=== PATIENT | male | born 1945 | race Caucasian/White ===

== ENCOUNTER → 2019-05-21 09:47 | Outpatient (CLI) | payer MEDICARE, OTHER, SELFPAY ==
--- NOTE | 2019-05-21 09:51 | DIET.PN ---
Dietary Progress Note Assessment: 73y M here for instructions on managing pre-DM, wants to go off metformin, PCP okayed 6mo vacation from meds if pt has adequate control via diet/exercise. was taking metformin 500mg once per day HT: 6'1 WT: 175# BMI: 23.1 Labs: labs not in [facility] system, pt reports as: A1c 6, TC around 200 Usual Day: wakes 8am 10 minute workout core and stretching 9am: cheerios, raisin bran, 1 banana, 6 strawberries, blueberries c skim milk walks dog 1/2 mile both am and pm when not raining not very sedentary noon lunch: 1/2 meat cheese (jordanian, with veggies) and half pb&j on raisin bread c water and side of fruit nap afternoon project work, dog walk 6pm: [employer] made meals: taco salad, pizza, turkey stroganoff, turkey meatballs, turkey brats or burgers 10pm in bed. spends 4-5 months on [employer] in [place] during summer Pt's diet quality is overall good, breakfast and dinner likely high in carbs. Pt already removed OJ from breakfast and cut bread serving in half at lunchtime. Pt is active but not cardiovascular, hx of heart procedure. Nutrition Diagnosis: undesirable food choices r/t knowledge deficit of dietary reccs for preDM aeb pt not knowing which foods contain carbs, breakfast and dinner over 45g goal daily, no intentional cardiovascular activity. Interventions: 1. Discussed etiology of insulin resistance, how the A1c is tested and what it means. 2. Discussed ways to become less insulin resistant including increased intentional physical activity and controlled carbohydrate intake (45g/meal). 3. Problem solved patient's usual day and made goals to modify breakfast and lunch to stick to 45g CHO and add intentional moderate intensity walking daily. Monitoring/Evaluations: f/u as desired by pt
== END ==
PROVIDERS: PCP Student in an Organized Health Care Education/Training Program; Referring Provider Student in an Organized Health Care Education/Training Program; Visit Provider Student in an Organized Health Care Education/Training Program
DX: R73.03 Prediabetes (principal); Z71.3 Dietary counseling and surveillance
CPT/HCPCS: 97802

== ENCOUNTER → 2019-11-11 11:17 | Outpatient (CLI) | payer MEDICARE, OTHER, SELFPAY ==
[2019-11-12 19:14] LABS: COVID19 Sendout Not Detected (Not Detect)
== END ==
PROVIDERS: PCP Student in an Organized Health Care Education/Training Program; Visit Provider Physician Assistant
DX: Z11.59 Encounter for screening for other viral diseases (principal)
CPT/HCPCS: 87635

== ENCOUNTER 2019-11-14 12:20 | Day surgery (SDC) | payer MEDICARE, OTHER, SELFPAY ==
--- NOTE | 2019-11-14 | PATH_ITS ---
[facility] [place] Accession Number: [id number] . 01 Material submitted: . colon - ASCENDING COLON POLYP 2MM . 02 Diagnosis: Ascending Colon, Polyp 2 mm, Biopsy: Tubular adenoma. MRV 11/17/2019 1300 Local . 02 Electronically signed: . Zaira Snell MD, Pathologist NPI- [id number] . 01 Gross description: . ASCENDING COLON POLYP 2MM: Received in formalin is 1 fragment(s) of george, soft tissue measuring 0.3 x 0.3 x 0.1 cm submitted entirely in 1 cassette(s) /QBJ 11/15/2019 0745 Local . 02 Pathologist provided ICD-10: D12.2 . 02 CPT . 935687 Performed at: 01 [facility] [address] [id number] MD Quique Moreland MD Phone: [phone] Performed at: 02 [facility] [address] [place], [place] [id number] MD Zaira Snell MD Phone: [phone]
--- NOTE | 2019-11-14 11:34 | PM.HP.1 ---
History of Present Illness History of Present Illness Date Patient Seen: 11/14/19 Time Patient Seen: 13:32 [place] [facility] [place]: 74 year old female comes in today for consideration of a screening colonoscopy. Has had 3 lifetime colonoscopies, all normal. Last colonoscopy in 2009. There have been no lower GI symptoms suggesting disease such as change in bowel habits, bleeding, abdominal pain or anemia. There's been no family history of colon cancer or colon polyps. Overall health issues have been stable, including no major cardiac events for at least 6 weeks. PCP: Dr. Medrano Past medical history: Syncope, 2014, hospitalization Hoarseness, 2010 Valvular heart disease with history of aortic valve replacement Mitral valve prolapse Pacemaker Hyperglycemia Essential/tremor Herpes simplex Degenerative joint disease Lumbar radiculopathy BPH Erectile dysfunction Past surgical history: Aortic valve replacement, bovine, 2011 ascending aortic aneurysm repair, 2011 Left knee arthroscopic medial meniscus repair, 2001 Right knee arthroscopy, 2016 Cataract extraction bilateral, 2018 Vertebroplasty, 2010 Pacemaker 2017 Family history: Noncontributory Social history: to [place]. Retired [employer] x 22 years. Meds Home Medications and Allergies Home Medications Medication Instructions Recorded Confirmed Type No Known Home Medications 11/14/19 11/14/19 History Allergies Allergy/AdvReac Type Severity Reaction Status Date / Time atorvastatin Allergy Severe Anaphylaxis Verified 11/14/19 12:53 Review of Systems Review of Systems ROS: Yes All systems reviewed with the patient and are negative except as otherwise documented Exam Narrative Exam Narrative: GENERAL: Alert and oriented, appearing stated age and in no acute distress. HEENT: Head normocephalic/atraumatic. Pupils equal, round, and reactive to light and accomodation. Extraocular muscles intact. Tympanic membranes clear. Nasal mucosa moist, septum midline. Oral mucosa moist, no lesions. Neck soft and supple, no lymphadenopathy. LUNGS: Clear to ausculation bilaterally, no wheezes, rhonchi or rales. CV: Normal S1 and S2 with regular rate and rhythm, no audible murmurs, rubs or gallops. ABDOMEN: Soft, non-tender, non-distended, no organomegaly. Positive bowel sounds. EXTREMITIES: No clubbing, cyanosis, or edema. NEURO: Cranial nerves II through XII grossly intact, no focal deficits. PSYCH: Alert and oriented x 3. SKIN: No concerning lesions. Assessment & Plan Assessment & Plan narrative: 1. Screening for colon cancer Plan for colonoscopy. The nature and character of the procedure as well as anticipated results were discussed. The possibility of not completing the procedure was also discussed. Possible complications including aspiration pneumonia, bleeding, perforation and reaction to medications either for sedation or preparation and missed lesions were discussed. Questions were answered and proceeding to the colonoscopy was elected. Informed consent signed. I sincerely appreciate the referral allowing me to participate in this patient's care. Please contact me with any questions or concerns.
--- NOTE | 2019-11-14 11:43 | PM.OP.ENDO ---
Operative Date/Time/Diagnoses Date of procedure: 11/14/19 Time of procedure: 13:49 Pre-op diagnosis: 1. Screening for colon cancer Post-op diagnosis: other (Ascending polyp x1, 2 mm, removed with cold biopsy forceps, 2. Diverticulosis, mild) Procedure & Clinicians Study performed: Colonoscopy Same procedure as scheduled: Yes Indications: 1. Screening for colon cancer Surgeon: Laura Medrano Procedure Notes SCOAP/Timeout: 13:49 Procedure in detail: ENDOSCOPIST: Laura Medrano MD Sedation RN: Ivory Gomez RN Sedation start time: 13:49 Sedation end time: 14:09 PROCEDURE: Colonoscopy with cold biopsy INDICATIONS: 1. Screening for colon cancer MEDICATION: Levsin 0.125 mg sublingual, incremental doses of Versed and fentanyl until appropriate level sedation achieved. ASA CLASS: 2 CECAL WITHDRAWAL TIME: 10 minutes COMPLICATIONS: None. EXTENT OF PROCEDURE: Cecum. QUALITY OF PREP: Good with portions of liquid stool. PROCEDURE: Prior to insertion of the colonoscope, a digital rectal examination was accomplished with circumferential palpation of the distal rectal mucosa without significant findings being noted. The high-definition colonoscope was passed into the rectum in the usual fashion and advanced over to the cecum without difficulty. The ileocecal valve, appendiceal stoma, and medial wall all could be inspected and no abnormalities were seen. ASCENDING COLON: As the colonoscope was withdrawn, care was taken to expose and inspect the haustral folds and a 2 mm polyp was seen and removed with cold biopsy forceps. HEPATIC FLEXURE: Normal no polyps, diverticula or other abnormalities. TRANSVERSE COLON: Minor diverticulosis, otherwise, normal, no polyps, or other abnormalities. DESCENDING COLON: Minor diverticulosis, otherwise, normal, no polyps, or other abnormalities. SIGMOID COLON: Minor diverticulosis, otherwise, normal, no polyps, or other abnormalities. RECTUM: Normal. J maneuver was produced. There was no significant perianal disease. The J maneuver was broken. The remainder of the rectum was inspected and there was no external hemorrhoid disease. The scope was withdrawn. IMPRESSION: 1. Ascending polyp x1, 2 mm, removed with cold biopsy forceps 2. Diverticulosis, minor PLAN: 1. Follow-up in clinic status post pathology results. The possibility of a missed lesion including a malignancy has been discussed with the patient previously. Potential alarm symptoms have been discussed and should be reported immediately. Complications: none Post-procedure Recommendations: Will call with biopsy results Follow up: weeks (2) Disposition: PACU
[2019-11-14] MEDS: LACTATED RINGERS 1,000 ML 200 ML IV (13:07)
[2019-11-14 13:10] VITALS: BP 130/75; PULSE 74; RESP 16; TEMP 36.2; O2SAT 96; BMI 22.0
[2019-11-14] MEDS: HYOSCYAMINE 0.125 MG TABLET PO (13:40)
[2019-11-14] MEDS: MIDAZOLAM 5 MG/5 ML VIAL IV ×2 (13:49→13:51)
[2019-11-14] MEDS: fentaNYL 250 MCG/5 ML INJ IV (13:49)
[2019-11-14 14:13] VITALS: BP 99/60; PULSE 74; RESP 17; TEMP 36.1; O2SAT 98
[2019-11-14 14:18] VITALS: BP 96/60; PULSE 71; RESP 12; O2SAT 97
[2019-11-14 14:23] VITALS: BP 108/63; PULSE 83; RESP 20; O2SAT 98
[2019-11-14 14:33] VITALS: BP 105/67; PULSE 72; RESP 18; O2SAT 98
[2019-11-14 14:44] VITALS: BP 105/72; PULSE 67; RESP 12; TEMP 36.5; O2SAT 99
== END 2019-11-14 15:00 | disposition home or self-care (01) ==
PROVIDERS: PCP Student in an Organized Health Care Education/Training Program; Referring Provider Student in an Organized Health Care Education/Training Program; Visit Provider Student in an Organized Health Care Education/Training Program
PROC: 0DJD8ZZ Inspection of Lower Intestinal Tract, Via Natural or Artificial Opening Endoscopic (ICD-10-PCS; CPT 45378; principal; 2019-11-14 13:45)
DX: Z12.11 Encounter for screening for malignant neoplasm of colon (principal); Z95.0 Presence of cardiac pacemaker; I51.9 Heart disease, unspecified; K57.30 Diverticulosis of large intestine without perforation or abscess without bleeding; D12.2 Benign neoplasm of ascending colon
CPT/HCPCS: 45380; J2250; J3010

== ENCOUNTER → 2020-03-26 09:42 | Outpatient (CLI) | payer MEDICARE, OTHER, SELFPAY ==
[2020-03-26 10:29] LABS: Add Manual Diff / Slide Review NO; Basophils Absolute Auto 0 /uL (0-100); Basophils Percent Auto 0.6 % (0-2); Eosinophils Absolute Auto 100 /uL (0-450); Eosinophils Percent Auto 1.8 % (2-4); Hematocrit 40.4 % (41-53); Hemoglobin 13.3 g/dL (13.5-17.5); Lymphocytes Absolute Auto 1800 /uL (1100-4500); Lymphocytes Percent Auto 24.1 % (25-40); Mean Corpuscular Hemoglobin 32.6 PG (26-34); Mean Corpuscular Volume 98.6 fL (80-100); Monocytes Absolute Auto 700 /uL (0-900); Monocytes Percent Auto 9.2 % (3-14); Neutrophils Absolute Auto 4700 /uL (1500-7000); Neutrophils Percent Auto 64.3 % (50-75); Platelet Count 281 X10^3/uL (150-400); Red Blood Cell Count 4.09 X10^6/uL (4.5-5.9); Red Cell Distribution Width 13.1 % (11.6-14.8); White Blood Cell Count 7.3 X10^3/uL (4.5-11.0)
[2020-03-26 10:45] LABS: Alanine Aminotransferase 21 IU/L (<50); Albumin Globulin Ratio 1.3 (1.0-2.8); Alkaline Phosphatase 65 U/L (38-126); Aspartate Aminotransferase 25 IU/L (17-59); BUN Creatinine Ratio 20.5 (6-22); Bilirubin Total 0.5 mg/dL (0.2-1.3); Blood Urea Nitrogen 23 mg/dL (9-20); Carbon Dioxide 28 mmol/L (22-32); Chloride 105 mmol/L (98-107); Cholesterol 195 mg/dL (140-199); Estimated Glomerular Filt Rate > 60.0 mL/min (>60); Glucose 104 mg/dL (80-110); HDL Cholesterol 43 mg/dL (40-60); HEMOLYSIS < 15 (0-50); LDL Cholesterol Calculated 133 mg/dL (<100); Sodium 137 mmol/L (137-145); Triglycerides 97 mg/dL (35-150)
[2020-03-26 10:53] LABS: Hemoglobin A1C% w Est Avg Glu 5.9 % (4.0-6.0)
[2020-03-26 11:15] LABS: Prostate Specific Antigen Scrn 5.07 ng/mL (0.1-4.0)
[2020-03-26 12:25] LABS: Thyroid Stimulating Hormone 2.94 uIU/mL (0.47-4.68)
== END ==
PROVIDERS: PCP Student in an Organized Health Care Education/Training Program; Referring Provider Student in an Organized Health Care Education/Training Program; Visit Provider Student in an Organized Health Care Education/Training Program
DX: R73.01 Impaired fasting glucose (principal); Z79.899 Other long term (current) drug therapy; E78.5 Hyperlipidemia, unspecified; Z13.29 Encounter for screening for other suspected endocrine disorder; N40.1 Benign prostatic hyperplasia with lower urinary tract symptoms; Z12.5 Encounter for screening for malignant neoplasm of prostate
CPT/HCPCS: 36415; 80053; 80061; 83036; 84443; 85025; G0103

== ENCOUNTER → 2020-10-12 15:06 | Outpatient (CLI) | payer MEDICARE, OTHER, SELFPAY ==
--- NOTE | 2020-10-12 15:09 | DI.RAD.S_ITS ---
PROCEDURE: XR KNEE LT 3V INDICATIONS: LT KNEE PAIN TECHNIQUE: 3 views of the knee were acquired. COMPARISON: None. FINDINGS: Bones: No acute fractures or dislocations. No suspicious bony lesions. There is moderate narrowing of the medial femorotibial compartment joint space with small marginal osteophytes. There is also mild to moderate narrowing of the anterior compartment joint space. Superior and inferior patellar enthesophytes are present. Soft tissues: Small joint effusion. No suspicious soft tissue calcifications. IMPRESSION: 1. No acute osseous abnormality. 2. Mild to moderate osteoarthrosis, worst at the medial femorotibial compartment. 3. Small joint effusion. Dictated by: Gianluca Retana M.D. on 10/12/2020 at 16:52 Approved by: Gianluca Retana M.D. on 10/12/2020 at 16:53
== END ==
PROVIDERS: PCP Student in an Organized Health Care Education/Training Program; Referring Provider Student in an Organized Health Care Education/Training Program; Visit Provider Student in an Organized Health Care Education/Training Program
DX: M25.562 Pain in left knee (principal); M17.12 Unilateral primary osteoarthritis, left knee; M25.462 Effusion, left knee
CPT/HCPCS: 73562

== ENCOUNTER 2020-11-19 10:30 | Outpatient (RCR) | payer MEDICARE, OTHER, SELFPAY ==
--- NOTE | 2020-10-19 15:46 | PT.OIE ---
Current Diagnoses Pain in left knee (10/19/20) Visit Care Team Role Provider Type Laura Medrano MD Attending Provider Physician Primary Care Provider Referring Provider Specialty: [facility] Address: [address] [place] [address], [facility], [place], [place], [facility] Email: [email or web address] Physical Therapy Initial Evaluation PT-OP-A Visit Information Start: 10/18/20 12:16 Freq: Status: Active Protocol: Document 10/19/20 10:32 MB (Rec: 10/19/20 10:45 MB [id number]) Out-Patient Physical Therapy Visit Information Visit Information Visit Type Initial Evaluation Visit Note Medicare, for Life Visit Start Time 10:32 Visit Stop Time 11:15 Total Visit Minutes 43 Visit Number 1 Evaluation Information Evaluation Date 10/19/20 PT-OP-B Current Condition Start: 10/18/20 12:16 Freq: Status: Active Protocol: Document 10/19/20 10:32 MB (Rec: 10/19/20 10:45 MB [id number]) Current Condition History of Current Condition Onset Date 2-3 weeks Current Complaints Medial left knee pain History of Current Condition Pt reports onset of pain in left leg 2-3 weeks ago. The pain settled into his left knee. In 1969, he tore his left medial meniscus when skiing and was immoblized and that was helpful. In 2001, he tore it again and underwent arthroscopic surgery. In 2016, he had a right knee injury and surgery. The injuries occurred with squatting movements. Pt reports 4/10 left medial knee pain. He is wearing a sleeve over his left knee. He likes to do exercises everyday to keep his stomach flat and help his back. He is icing his left knee and taking ibuprofen. PMH also includes: AAA, aortic valve replacement, vertebroplasty T1, pacemaker for SSS. Pt states that Dr. Alegre told him that he has to have an x-ray, then PT for 6 weeks, and then he can get a MRI. Pt is open to PT being helpful. Prior Treatments and Tests Left knee x-ray: NAD, mild to moderate OA, worst at medial femorotibial compartment, small joint effusion Treatment Goals Patient/Caregiver Goals To see if PT can resolve his issues so that he does not favor his left knee. He would like to be able to walk and stand without left knee pain. PT-OP-C Subjective Start: 10/18/20 12:16 Freq: Status: Active Protocol: Document 10/19/20 10:32 MB (Rec: 10/19/20 13:50 MB [id number]) OP-PT Subjective Patient Comments Patient Comments See history of current condition. PT-OP-D Balance Start: 10/18/20 12:16 Freq: Status: Active Protocol: Document 10/19/20 10:32 MB (Rec: 10/19/20 14:09 MB [id number]) Balance Tests Other Other Balance Tests Performed Heel raises for PF strengthening: LOB with attempted SLS LLE requiring both hands on wall to keep balance PT-OP-G Mobility & Gait Start: 10/18/20 12:16 Freq: Status: Active Protocol: Document 10/19/20 10:32 MB (Rec: 10/19/20 14:09 MB [id number]) OP Gait Assessment Comments Gait Comments Gait is slow and antalgic, favoring the LLE and pt has decreased step-length and foot clearance and increased weight through lateral foot on the left PT-OP-J Posture/Palpation/Skin Start: 10/18/20 12:16 Freq: Status: Active Protocol: Document 10/19/20 10:32 MB (Rec: 10/19/20 14:09 MB [id number]) Posture Evaluation Comments Posture Comments Gait and standing posture in bare feet today. Standing posture: increased thoracic kyphosis, decreased lordosis and spinal curvature changes from lateral and posterior view, right shoulder is higher than the left with right scapula forward and protracted , right iliac crest is higher than the left, increased WB through right foot and increased Bk angle right foot Palpation: pain to palpation medial left knee joint line close to patella with tension many muscle groups including medial distal hamstring and adductors PT-OP-M Strength Start: 10/18/20 12:16 Freq: Status: Active Protocol: Document 10/19/20 10:32 MB (Rec: 10/19/20 14:09 MB [id number]) Hip Strength Hip Manual Muscle Testing Left Flexion (L2) 5 Normal Abduction 4 Good Adduction 4 Good Right Flexion (L2) 5 Normal Abduction 4 Good Adduction 4 Good Knee Strength Knee Manual Muscle Testing Left Comments Deferred in setting of pain Right Flexion (S2) 5 Normal Extension (L3) 5 Normal Ankle/Foot Strength Ankle and Foot Manual Muscle Testing Left Dorsiflexion (L4) 5 Normal Inversion 4 Good Eversion (S1) 4 Good Comments Heel raises x20 with both hands on wall and reports of calf discomfort, slower than right heel raises Right Dorsiflexion (L4) 5 Normal Inversion 5 Normal Eversion (S1) 5 Normal Comments Heel raises x20 with 1 finger support against wall Toe Strength Toe Manual Muscle Testing Left Great Toe Extension 5 Normal Right Great Toe Extension 5 Normal PT-OP-Q Treatments Start: 10/18/20 12:16 Freq: Status: Active Protocol: Document 10/19/20 10:32 MB (Rec: 10/19/20 13:53 MB [id number]) Therapeutic Exercises Supine Exercises Hamstring stretch Side bilateral Comments Opposite leg straight, AP x20 reps Paramjit stretch Side bilateral Comments Opposite knee bent, pelvic tilt and abdominal drawing in first Other Exercises Reviewed pt's self-reported exercises Comments Pt to stop deep squat quad stretches and forward bends Self-Care/Home Management Treatment Education Other Education Use of frozen peas in pillow case for leg knee icing, use of pillow length-leal between legs at night to help with knee pain PT-OP-T Assessment and Plan Start: 10/18/20 12:16 Freq: Status: Active Protocol: Document 10/19/20 10:32 MB (Rec: 10/19/20 14:09 MB [id number]) Physical Therapy Assessment Rehab Potential Rehabilitation Potential Fair Evaluation Complexity Number of Personal Factors/Comorbidities 1-2 Number of Body Systems Impaired 1-2 Clinical Presentation at Evaluation Evolving Impairments Impairments Activity Tolerance,Balance, Functional Mobility,Gait,Pain, Posture,ROM,Soft Tissue Mobility,Strength Other Impairments Personal factors include advanced age and history of many injuries and left knee surgery. Body systems affected include musculoskeletal and neuromuscular. His clinical presentation is evolving in setting of degenerative changes. Other Concerns Fall Risk Yes Goals 4 Mounter Automatic Goal (LTG) Pt will perform progressive HEP with I including pelvic realignment, flexibility, balance and strengthening exercises to improve pain and functional strength by 12/20/20 . LTG Duration 8 weeks 3 Mounter Automatic Goal (LTG) Pt will perform WNLs on a standardized balance test to decrease fall risk by 12/20/20. LTG Duration 8 weeks 2 Mounter Automatic Goal (LTG) Pt will gait train at least 1400 feet in 6 minutes to improve community ambulation by 12/20/20. LTG Duration 8 weeks 1 Mcc Goal (LTG) Pt will present with an improved LEF score to reflect no more than 25% impairment by 12/20/20. LTG Duration 8 weeks Assessment Summary Assessment Pt is a 75 y/o male presenting with decreased left knee ROM, LLE strength, balance and gait and increased left knee pain after squatting 2-3 weeks ago. He has a history of B knee injuries and surgeries. Pt states that he has a left medial meniscal injury. He is tender to palpation medial joint line near the patella. X -ray revealed some changes. He is hoping that PT will help and states that he knows he has to have it before he has a MRI. He will benefit from PT to improve range, flexibility, strength, gait and balance. Barriers include progressive degenerative disease with possible other underlying anatomical changes to left knee. Physical Therapy Plan Frequency and Duration Frequency of Treatment 2x/Week Duration of Treatment 8 weeks Plan of Care Start Date 10/19/20 Plan of Care End Date 12/20/20 Therapeutic Interventions Therapeutic Interventions Balance Training,Canalithic Repositioning,Gait Training, Home Exercise Program,Joint Mobilizations,Manual Therapy, Neuromuscular Re-education, Patient/Caregiver Education, Sensory Integration,Soft Tissue Mobilization,Taping, Therapeutic Activities, Therapeutic Exercises Modalities Cold Pack/Ice Massage,Electric Stimulation,Hot Packs, Ultrasound Next Visit Focus/Plan Next Note Type Treatment Note Next Visit Plan Pelvic realignment exercises, consider taping and manual work
--- NOTE | 2020-10-19 15:46 | PT.OPPOC ---
Physical, Occupational & Speech Therapy At [facility] Current Diagnoses Pain in left knee (10/19/20) Visit Care Team Role Provider Type Laura Medrano MD Attending Provider Physician Primary Care Provider Referring Provider Specialty: Family Practice Address: [address] [place] [address], [facility] [place], [address] Email: [email or web address] Plan Of Care PT-OP-T Assessment and Plan Start: 10/18/20 12:16 Freq: Status: Active Protocol: Document 10/19/20 10:32 MB (Rec: 10/19/20 14:09 MB [id number]) Physical Therapy Assessment Rehab Potential Rehabilitation Potential Fair Evaluation Complexity Number of Personal Factors/Comorbidities 1-2 Number of Body Systems Impaired 1-2 Clinical Presentation at Evaluation Evolving Impairments Impairments Activity Tolerance,Balance, Functional Mobility,Gait,Pain, Posture,ROM,Soft Tissue Mobility,Strength Other Impairments Personal factors include advanced age and history of many injuries and left knee surgery. Body systems affected include musculoskeletal and neuromuscular. His clinical presentation is evolving in setting of degenerative changes. Other Concerns Fall Risk Yes Goals 4 Dental Appliance Fixer Goal (LTG) Pt will perform progressive HEP with I including pelvic realignment, flexibility, balance and strengthening exercises to improve pain and functional strength by 12/20/20 . LTG Duration 8 weeks 3 Dental Appliance Fixer Goal (LTG) Pt will perform WNLs on a standardized balance test to decrease fall risk by 12/20/20. LTG Duration 8 weeks 2 Dental Appliance Fixer Goal (LTG) Pt will gait train at least 1400 feet in 6 minutes to improve community ambulation by 12/20/20. LTG Duration 8 weeks 1 Dental Appliance Fixer Goal (LTG) Pt will present with an improved LEF score to reflect no more than 25% impairment by 12/20/20. LTG Duration 8 weeks Assessment Summary Assessment Pt is a 75 y/o male presenting with decreased left knee ROM, LLE strength, balance and gait and increased left knee pain after squatting 2-3 weeks ago. He has a history of B knee injuries and surgeries. Pt states that he has a left medial meniscal injury. He is tender to palpation medial joint line near the patella. X -ray revealed some changes. He is hoping that PT will help and states that he knows he has to have it before he has a MRI. He will benefit from PT to improve range, flexibility, strength, gait and balance. Barriers include progressive degenerative disease with possible other underlying anatomical changes to left knee. Physical Therapy Plan Frequency and Duration Frequency of Treatment 2x/Week Duration of Treatment 8 weeks Plan of Care Start Date 10/19/20 Plan of Care End Date 12/20/20 Therapeutic Interventions Therapeutic Interventions Balance Training,Canalithic Repositioning,Gait Training, Home Exercise Program,Joint Mobilizations,Manual Therapy, Neuromuscular Re-education, Patient/Caregiver Education, Sensory Integration,Soft Tissue Mobilization,Taping, Therapeutic Activities, Therapeutic Exercises Modalities Cold Pack/Ice Massage,Electric Stimulation,Hot Packs, Ultrasound Next Visit Focus/Plan Next Note Type Treatment Note Next Visit Plan Pelvic realignment exercises, consider taping and manual work Plan of Care Dates Plan of Care Start Date 10/19/20 Plan of Care End Date 12/20/20 Electronically Signed by: Sandra Hatfield, PT 10/19/20 8402 Please Sign and Return: I have reviewed this Plan of Care and certify that the skilled therapy services above are required to meet the patient?s needs. Physician Signature Date Printed Name and Credentials Clinical Instructor Signature Printed Name and Credentials
--- NOTE | 2020-10-22 11:16 | PT.OTN ---
Current Diagnoses Pain in left knee (10/22/20) Physical Therapy Treatment Note PT-OP-A Visit Information Start: 10/18/20 12:16 Freq: Status: Active Protocol: Document 10/22/20 10:31 MB (Rec: 10/22/20 11:10 MB [id number]) Out-Patient Physical Therapy Visit Information Visit Information Visit Type Treatment Note Visit Start Time 10:31 Visit Stop Time 11:15 Total Visit Minutes 44 Visit Number 2 PT-OP-B Current Condition Start: 10/18/20 12:16 Freq: Status: Active Protocol: Document 10/19/20 10:32 MB (Rec: 10/19/20 10:45 MB [id number]) Current Condition History of Current Condition Onset Date 2-3 weeks Current Complaints Medial left knee pain History of Current Condition Pt reports onset of pain in left leg 2-3 weeks ago. The pain settled into his left knee. In 1969, he tore his left medial meniscus when skiing and was immoblized and that was helpful. In 2001, he tore it again and underwent arthroscopic surgery. In 2015, he had a right knee injury and surgery. The injuries occurred with squatting movements. Pt reports 4/10 left medial knee pain. He is wearing a sleeve over his left knee. He likes to do exercises everyday to keep his stomach flat and help his back. He is icing his left knee and taking ibuprofen. PMH also includes: AAA, aortic valve replacement, vertebroplasty T1, pacemaker for SSS. Pt states that Dr. Alegre told him that he has to have an x-ray, then PT for 6 weeks, and then he can get a MRI. Pt is open to PT being helpful. Prior Treatments and Tests Left knee x-ray: NAD, mild to moderate OA, worst at medial femorotibial compartment, small joint effusion Treatment Goals Patient/Caregiver Goals To see if PT can resolve his issues so that he does not favor his left knee. He would like to be able to walk and stand without left knee pain. PT-OP-C Subjective Start: 10/18/20 12:16 Freq: Status: Active Protocol: Document 10/22/20 10:31 MB (Rec: 10/22/20 11:10 MB [id number]) OP-PT Subjective Patient Comments Patient Comments Pt states that he likes the stretches. His leg felt a little better. PT-OP-D Balance Start: 10/18/20 12:16 Freq: Status: Active Protocol: Document 10/19/20 10:32 MB (Rec: 10/19/20 14:09 MB [id number]) Balance Tests Other Other Balance Tests Performed Heel raises for PF strengthening: LOB with attempted SLS LLE requiring both hands on wall to keep balance PT-OP-G Mobility & Gait Start: 10/18/20 12:16 Freq: Status: Active Protocol: Document 10/19/20 10:32 MB (Rec: 10/19/20 14:09 MB [id number]) OP Gait Assessment Comments Gait Comments Gait is slow and antalgic, favoring the LLE and pt has decreased step-length and foot clearance and increased weight through lateral foot on the left PT-OP-J Posture/Palpation/Skin Start: 10/18/20 12:16 Freq: Status: Active Protocol: Document 10/19/20 10:32 MB (Rec: 10/19/20 14:09 MB [id number]) Posture Evaluation Comments Posture Comments Gait and standing posture in bare feet today. Standing posture: increased thoracic kyphosis, decreased lordosis and spinal curvature changes from lateral and posterior view, right shoulder is higher than the left with right scapula forward and protracted , right iliac crest is higher than the left, increased WB through right foot and increased Bk angle right foot Palpation: pain to palpation medial left knee joint line close to patella with tension many muscle groups including medial distal hamstring and adductors PT-OP-M Strength Start: 10/18/20 12:16 Freq: Status: Active Protocol: Document 10/19/20 10:32 MB (Rec: 10/19/20 14:09 MB [id number]) Hip Strength Hip Manual Muscle Testing Left Flexion (L2) 5 Normal Abduction 4 Good Adduction 4 Good Right Flexion (L2) 5 Normal Abduction 4 Good Adduction 4 Good Knee Strength Knee Manual Muscle Testing Left Comments Deferred in setting of pain Right Flexion (S2) 5 Normal Extension (L3) 5 Normal Ankle/Foot Strength Ankle and Foot Manual Muscle Testing Left Dorsiflexion (L4) 5 Normal Inversion 4 Good Eversion (S1) 4 Good Comments Heel raises x20 with both hands on wall and reports of calf discomfort, slower than right heel raises Right Dorsiflexion (L4) 5 Normal Inversion 5 Normal Eversion (S1) 5 Normal Comments Heel raises x20 with 1 finger support against wall Toe Strength Toe Manual Muscle Testing Left Great Toe Extension 5 Normal Right Great Toe Extension 5 Normal PT-OP-Q Treatments Start: 10/18/20 12:16 Freq: Status: Active Protocol: Document 10/22/20 10:31 MB (Rec: 10/22/20 11:10 MB [id number]) Cardio Equipment Bicycle (Upright) Duration (Minutes) 3 Resistance 8 Seat Position 8 Therapeutic Exercises Supine Exercises Adductor stretch Side bilateral Comments Perform one leg at a time, 20 sec Pelvic realignment exercises Side bilateral Comments 5 reps, 3 sec hold all exercises Paramjit stretch Side left Comments Pelvic tilt and abdominal drawing in, dangling leg Manual Therapy Treatment Other Other Manual Treatments STM left adductors and medial hamstrings, vastus lateralis and rectus femoris PT-OP-T Assessment and Plan Start: 10/18/20 12:16 Freq: Status: Active Protocol: Document 10/22/20 10:31 MB (Rec: 10/22/20 11:10 MB [id number]) Physical Therapy Assessment Rehab Potential Rehabilitation Potential Fair Evaluation Complexity Number of Personal Factors/Comorbidities 1-2 Number of Body Systems Impaired 1-2 Clinical Presentation at Evaluation Evolving Impairments Impairments Activity Tolerance,Balance, Functional Mobility,Gait,Pain, Posture,ROM,Soft Tissue Mobility,Strength Other Impairments Personal factors include advanced age and history of many injuries and left knee surgery. Body systems affected include musculoskeletal and neuromuscular. His clinical presentation is evolving in setting of degenerative changes. Other Concerns Fall Risk Yes Goals 4 Nozzle Worker Goal (LTG) Pt will perform progressive HEP with I including pelvic realignment, flexibility, balance and strengthening exercises to improve pain and functional strength by 12/20/20 . LTG Duration 8 weeks 3 Nozzle Worker Goal (LTG) Pt will perform WNLs on a standardized balance test to decrease fall risk by 12/20/20. LTG Duration 8 weeks 2 Nozzle Worker Goal (LTG) Pt will gait train at least 1400 feet in 6 minutes to improve community ambulation by 12/20/20. LTG Duration 8 weeks 1 Nozzle Worker Goal (LTG) Pt will present with an improved LEF score to reflect no more than 25% impairment by 12/20/20. LTG Duration 8 weeks Assessment Summary Assessment Pt reports discomfort with the upright bike today and so stopped. Pt responds well to manual work to improve right adductor and medial hamstring tension and ed pt on flexibility for this today. Physical Therapy Plan Frequency and Duration Frequency of Treatment 2x/Week Duration of Treatment 8 weeks Plan of Care Start Date 10/19/20 Plan of Care End Date 12/20/20 Therapeutic Interventions Therapeutic Interventions Balance Training,Canalithic Repositioning,Gait Training, Home Exercise Program,Joint Mobilizations,Manual Therapy, Neuromuscular Re-education, Patient/Caregiver Education, Sensory Integration,Soft Tissue Mobilization,Taping, Therapeutic Activities, Therapeutic Exercises Modalities Cold Pack/Ice Massage,Electric Stimulation,Hot Packs, Ultrasound Next Visit Focus/Plan Next Note Type Treatment Note Next Visit Plan Progress flexibility, strengthening and self-care, consider KT
--- NOTE | 2020-10-25 14:34 | PT.OTN ---
Current Diagnoses Pain in left knee (10/25/20) Physical Therapy Treatment Note PT-OP-A Visit Information Start: 10/18/20 12:16 Freq: Status: Active Protocol: Document 10/25/20 13:49 SP (Rec: 10/25/20 15:54 SP [id number]) Out-Patient Physical Therapy Visit Information Visit Information Visit Type Treatment Note Visit Note Medicare, for Life Visit Start Time 13:49 Visit Stop Time 14:34 Total Visit Minutes 45 Visit Number 3 Number of TUFTING MACHINE FIXER Visits 1 Evaluation Information Evaluation Date 10/19/20 PT-OP-B Current Condition Start: 10/18/20 12:16 Freq: Status: Active Protocol: Document 10/19/20 10:32 MB (Rec: 10/19/20 10:45 MB [id number]) Current Condition History of Current Condition Onset Date 2-3 weeks Current Complaints Medial left knee pain History of Current Condition Pt reports onset of pain in left leg 2-3 weeks ago. The pain settled into his left knee. In 1969, he tore his left medial meniscus when skiing and was immoblized and that was helpful. In 2001, he tore it again and underwent arthroscopic surgery. In 2015, he had a right knee injury and surgery. The injuries occurred with squatting movements. Pt reports 4/10 left medial knee pain. He is wearing a sleeve over his left knee. He likes to do exercises everyday to keep his stomach flat and help his back. He is icing his left knee and taking ibuprofen. PMH also includes: AAA, aortic valve replacement, vertebroplasty T1, pacemaker for SSS. Pt states that Dr. Alegre told him that he has to have an x-ray, then PT for 6 weeks, and then he can get a MRI. Pt is open to PT being helpful. Prior Treatments and Tests Left knee x-ray: NAD, mild to moderate OA, worst at medial femorotibial compartment, small joint effusion Treatment Goals Patient/Caregiver Goals To see if PT can resolve his issues so that he does not favor his left knee. He would like to be able to walk and stand without left knee pain. PT-OP-C Subjective Start: 10/18/20 12:16 Freq: Status: Active Protocol: Document 10/25/20 13:49 SP (Rec: 10/25/20 15:54 SP [id number]) OP-PT Subjective Patient Comments Patient Comments Pt stated felt pretty good after last tx so decided [place] with no ill affects. Pt stated the adductor stretch B leg falling out to side caused pain in R posterolateral hip/SI pain so had to stop, is there another way can stretch inner thigh. PT-OP-D Balance Start: 10/18/20 12:16 Freq: Status: Active Protocol: Document 10/19/20 10:32 MB (Rec: 10/19/20 14:09 MB [id number]) Balance Tests Other Other Balance Tests Performed Heel raises for PF strengthening: LOB with attempted SLS LLE requiring both hands on wall to keep balance PT-OP-G Mobility & Gait Start: 10/18/20 12:16 Freq: Status: Active Protocol: Document 10/19/20 10:32 MB (Rec: 10/19/20 14:09 MB [id number]) OP Gait Assessment Comments Gait Comments Gait is slow and antalgic, favoring the LLE and pt has decreased step-length and foot clearance and increased weight through lateral foot on the left PT-OP-J Posture/Palpation/Skin Start: 10/18/20 12:16 Freq: Status: Active Protocol: Document 10/19/20 10:32 MB (Rec: 10/19/20 14:09 MB [id number]) Posture Evaluation Comments Posture Comments Gait and standing posture in bare feet today. Standing posture: increased thoracic kyphosis, decreased lordosis and spinal curvature changes from lateral and posterior view, right shoulder is higher than the left with right scapula forward and protracted , right iliac crest is higher than the left, increased WB through right foot and increased Bk angle right foot Palpation: pain to palpation medial left knee joint line close to patella with tension many muscle groups including medial distal hamstring and adductors PT-OP-M Strength Start: 10/18/20 12:16 Freq: Status: Active Protocol: Document 10/19/20 10:32 MB (Rec: 10/19/20 14:09 MB [id number]) Hip Strength Hip Manual Muscle Testing Left Flexion (L2) 5 Normal Abduction 4 Good Adduction 4 Good Right Flexion (L2) 5 Normal Abduction 4 Good Adduction 4 Good Knee Strength Knee Manual Muscle Testing Left Comments Deferred in setting of pain Right Flexion (S2) 5 Normal Extension (L3) 5 Normal Ankle/Foot Strength Ankle and Foot Manual Muscle Testing Left Dorsiflexion (L4) 5 Normal Inversion 4 Good Eversion (S1) 4 Good Comments Heel raises x20 with both hands on wall and reports of calf discomfort, slower than right heel raises Right Dorsiflexion (L4) 5 Normal Inversion 5 Normal Eversion (S1) 5 Normal Comments Heel raises x20 with 1 finger support against wall Toe Strength Toe Manual Muscle Testing Left Great Toe Extension 5 Normal Right Great Toe Extension 5 Normal PT-OP-Q Treatments Start: 10/18/20 12:16 Freq: Status: Active Protocol: Document 10/25/20 13:49 SP (Rec: 10/25/20 15:54 SP [id number]) Cardio Equipment Bicycle (Upright) Duration (Minutes) 6 Resistance 8 Seat Position 6 Other pain free, feels like some good activity Therapeutic Exercises Supine Exercises Adductor stretch Supine Exercise Name opposite knee bent- no pain in R hip Side bilateral Equipment Used w/ strap added today (better result feedback) Comments Perform one leg at a time, 20 sec Pelvic realignment exercises Supine Exercise Name reviewed HEP Side bilateral Comments 5 reps, 3 sec hold all exercises Hamstring stretch Supine Exercise Name reviewed HEP Side bilateral Comments Opposite leg straight, AP x20 reps Paramjit stretch Supine Exercise Name Opposite Leg bend hold- got better stretch on L Side left Equipment Used 2 reps x20 sec hold Reps/Minutes (best in typical Paramjit testing position- low bed at home- felt good in tx) Comments Pelvic tilt and abdominal drawing in, dangling leg Standing Exercises band walk Standing Exercise Name added to HEP Side bilateral Resistance TB #1 loop Reps/Minutes 10 ft x2 laps Comments cued safe eccentric control, perform at counter TKE Standing Exercise Name added to HEP Side right Resistance TB #3 Equipment Used chair nearby contact as needed for stability at home, anchored in door Reps/Minutes 2x10 Comments good slow pacing control w/ quad fac, painfree PT-OP-T Assessment and Plan Start: 10/18/20 12:16 Freq: Status: Active Protocol: Document 10/25/20 13:49 SP (Rec: 10/25/20 15:54 SP [id number]) Physical Therapy Assessment Goals 4 Senior Care Goal (LTG) Pt will perform progressive HEP with I including pelvic realignment, flexibility, balance and strengthening exercises to improve pain and functional strength by 12/20/20 . LTG Duration 8 weeks 3 Poultry Hanger Goal (LTG) Pt will perform WNLs on a standardized balance test to decrease fall risk by 12/20/20. LTG Duration 8 weeks 2 Poultry Hanger Goal (LTG) Pt will gait train at least 1400 feet in 6 minutes to improve community ambulation by 12/20/20. LTG Duration 8 weeks 1 Senior Care Goal (LTG) Pt will present with an improved LEF score to reflect no more than 25% impairment by 12/20/20. LTG Duration 8 weeks Assessment Summary Assessment Pt responded welll to modification of Paramjit stretch position off end bed due to low bed height at home, adductor streth using strap better stretch responses. Initiated CKC strengthening: TKE, band walk today with good feedback pain free and good focused quad and hip abd facilitation tiring, stable balance, verbalized use of counter/ chair contact if needed. Physical Therapy Plan Frequency and Duration Frequency of Treatment 2x/Week Duration of Treatment 8 weeks Plan of Care Start Date 10/19/20 Plan of Care End Date 12/20/20 Therapeutic Interventions Therapeutic Interventions Balance Training,Canalithic Repositioning,Gait Training, Home Exercise Program,Joint Mobilizations,Manual Therapy, Neuromuscular Re-education, Patient/Caregiver Education, Sensory Integration,Soft Tissue Mobilization,Taping, Therapeutic Activities, Therapeutic Exercises Modalities Cold Pack/Ice Massage,Electric Stimulation,Hot Packs, Ultrasound Next Visit Focus/Plan Next Note Type Treatment Note Next Visit Plan Assess response to flexibility HEP review and initiated CKC strengthening. POC: Progress flexibility, strengthening and self-care, consider KT
--- NOTE | 2020-10-28 13:56 | PT.OTN ---
Current Diagnoses Pain in left knee (10/28/20) Physical Therapy Treatment Note PT-OP-A Visit Information Start: 10/18/20 12:16 Freq: Status: Active Protocol: Document 10/28/20 12:58 MB (Rec: 10/28/20 13:45 MB [id number]) Out-Patient Physical Therapy Visit Information Visit Information Visit Type Treatment Note Visit Note Medicare, for Life Visit Start Time 12:58 Visit Stop Time 13:40 Total Visit Minutes 42 Visit Number 4 PT-OP-B Current Condition Start: 10/18/20 12:16 Freq: Status: Active Protocol: Document 10/19/20 10:32 MB (Rec: 10/19/20 10:45 MB [id number]) Current Condition History of Current Condition Onset Date 2-3 weeks Current Complaints Medial left knee pain History of Current Condition Pt reports onset of pain in left leg 2-3 weeks ago. The pain settled into his left knee. In 1969, he tore his left medial meniscus when skiing and was immoblized and that was helpful. In 2001, he tore it again and underwent arthroscopic surgery. In 2015, he had a right knee injury and surgery. The injuries occurred with squatting movements. Pt reports 4/10 left medial knee pain. He is wearing a sleeve over his left knee. He likes to do exercises everyday to keep his stomach flat and help his back. He is icing his left knee and taking ibuprofen. PMH also includes: AAA, aortic valve replacement, vertebroplasty T1, pacemaker for SSS. Pt states that Dr. Alegre told him that he has to have an x-ray, then PT for 6 weeks, and then he can get a MRI. Pt is open to PT being helpful. Prior Treatments and Tests Left knee x-ray: NAD, mild to moderate OA, worst at medial femorotibial compartment, small joint effusion Treatment Goals Patient/Caregiver Goals To see if PT can resolve his issues so that he does not favor his left knee. He would like to be able to walk and stand without left knee pain. PT-OP-C Subjective Start: 10/18/20 12:16 Freq: Status: Active Protocol: Document 10/28/20 12:58 MB (Rec: 10/28/20 13:45 MB [id number]) OP-PT Subjective Patient Comments Patient Comments Pt states that he felt really good after manual PT work last week and went for a long walk that went well. Earlier in the week, he went off his ibuprofen and his right knee started to bother him. He denies injury. He has a history of B knee injuries and surgeries. PT-OP-D Balance Start: 10/18/20 12:16 Freq: Status: Active Protocol: Document 10/19/20 10:32 MB (Rec: 10/19/20 14:09 MB [id number]) Balance Tests Other Other Balance Tests Performed Heel raises for PF strengthening: LOB with attempted SLS LLE requiring both hands on wall to keep balance PT-OP-G Mobility & Gait Start: 10/18/20 12:16 Freq: Status: Active Protocol: Document 10/19/20 10:32 MB (Rec: 10/19/20 14:09 MB [id number]) OP Gait Assessment Comments Gait Comments Gait is slow and antalgic, favoring the LLE and pt has decreased step-length and foot clearance and increased weight through lateral foot on the left PT-OP-J Posture/Palpation/Skin Start: 10/18/20 12:16 Freq: Status: Active Protocol: Document 10/19/20 10:32 MB (Rec: 10/19/20 14:09 MB [id number]) Posture Evaluation Comments Posture Comments Gait and standing posture in bare feet today. Standing posture: increased thoracic kyphosis, decreased lordosis and spinal curvature changes from lateral and posterior view, right shoulder is higher than the left with right scapula forward and protracted , right iliac crest is higher than the left, increased WB through right foot and increased Bk angle right foot Palpation: pain to palpation medial left knee joint line close to patella with tension many muscle groups including medial distal hamstring and adductors PT-OP-M Strength Start: 10/18/20 12:16 Freq: Status: Active Protocol: Document 10/19/20 10:32 MB (Rec: 10/19/20 14:09 MB [id number]) Hip Strength Hip Manual Muscle Testing Left Flexion (L2) 5 Normal Abduction 4 Good Adduction 4 Good Right Flexion (L2) 5 Normal Abduction 4 Good Adduction 4 Good Knee Strength Knee Manual Muscle Testing Left Comments Deferred in setting of pain Right Flexion (S2) 5 Normal Extension (L3) 5 Normal Ankle/Foot Strength Ankle and Foot Manual Muscle Testing Left Dorsiflexion (L4) 5 Normal Inversion 4 Good Eversion (S1) 4 Good Comments Heel raises x20 with both hands on wall and reports of calf discomfort, slower than right heel raises Right Dorsiflexion (L4) 5 Normal Inversion 5 Normal Eversion (S1) 5 Normal Comments Heel raises x20 with 1 finger support against wall Toe Strength Toe Manual Muscle Testing Left Great Toe Extension 5 Normal Right Great Toe Extension 5 Normal PT-OP-Q Treatments Start: 10/18/20 12:16 Freq: Status: Active Protocol: Document 10/28/20 12:58 MB (Rec: 10/28/20 13:45 MB [id number]) Therapeutic Exercises Sitting Exercises Rolling pin self-massage Side bilateral Comments See saw motion Gait Training Gait Activity Gait with walking stick Comments Walking stick in left hand to advance with right foot with gait to help improve magali to protect left knee gains Manual Therapy Treatment Taping KT Comments KT right knee for support to help improve walking posture to protect left knee improvements: black KT with c strip under patella and B I strips medial and lateral knee Other Other Manual Treatments STM left adductors and medial hamstrings, vastus lateralis and gastrocsoleus. More work on adductors today and pt performing resisted isometric for adductors and active HS for vastus lateralis MWM PT-OP-T Assessment and Plan Start: 10/18/20 12:16 Freq: Status: Active Protocol: Document 10/28/20 12:58 MB (Rec: 10/28/20 13:45 MB [id number]) Physical Therapy Assessment Rehab Potential Rehabilitation Potential Fair Evaluation Complexity Number of Personal Factors/Comorbidities 1-2 Number of Body Systems Impaired 1-2 Clinical Presentation at Evaluation Evolving Impairments Impairments Activity Tolerance,Balance, Functional Mobility,Gait,Pain, Posture,ROM,Soft Tissue Mobility,Strength Other Impairments Personal factors include advanced age and history of many injuries and left knee surgery. Body systems affected include musculoskeletal and neuromuscular. His clinical presentation is evolving in setting of degenerative changes. Other Concerns Fall Risk Yes Goals 4 Supervisor Drapery Hanging Goal (LTG) Pt will perform progressive HEP with I including pelvic realignment, flexibility, balance and strengthening exercises to improve pain and functional strength by 12/20/20 . LTG Duration 8 weeks 3 Supervisor Drapery Hanging Goal (LTG) Pt will perform WNLs on a standardized balance test to decrease fall risk by 12/20/20. LTG Duration 8 weeks 2 Supervisor Drapery Hanging Goal (LTG) Pt will gait train at least 1400 feet in 6 minutes to improve community ambulation by 12/20/20. LTG Duration 8 weeks 1 Supervisor Drapery Hanging Goal (LTG) Pt will present with an improved LEF score to reflect no more than 25% impairment by 12/20/20. LTG Duration 8 weeks Assessment Summary Assessment Pt has new right knee pain and PT encourages him to follow- up with doctor to get assessed and to get right knee added to PT order. Did teach gait with walking stick and tape right knee today in order to protect gains made with left knee d/t severely antalgic gait upon arrival today. KT is better than brace sleeve he was wearing upon arrival d/t not blocking the patella and allowing better knee ROM for gait. His left adductors con't to improve with manual work. Con't per POC. Ed pt to con't icing both knees as needed. Physical Therapy Plan Frequency and Duration Frequency of Treatment 2x/Week Duration of Treatment 8 weeks Plan of Care Start Date 10/19/20 Plan of Care End Date 12/20/20 Therapeutic Interventions Therapeutic Interventions Balance Training,Canalithic Repositioning,Gait Training, Home Exercise Program,Joint Mobilizations,Manual Therapy, Neuromuscular Re-education, Patient/Caregiver Education, Sensory Integration,Soft Tissue Mobilization,Taping, Therapeutic Activities, Therapeutic Exercises Modalities Cold Pack/Ice Massage,Electric Stimulation,Hot Packs, Ultrasound Next Visit Focus/Plan Next Note Type Treatment Note Next Visit Plan Progress flexibility, strengthening, if right knee order received, will add to treatment, consider teaching self KT
--- NOTE | 2020-11-03 15:44 | PT.OTN ---
Current Diagnoses Pain in left knee (11/03/20) Physical Therapy Treatment Note PT-OP-A Visit Information Start: 10/18/20 12:16 Freq: Status: Active Protocol: Document 11/03/20 13:00 MB (Rec: 11/03/20 13:38 MB [id number]) Out-Patient Physical Therapy Visit Information Visit Information Visit Type Progress Note Visit Note Medicare, for Life, before KX modifier Visit Start Time 13:00 Visit Stop Time 13:40 Total Visit Minutes 40 Visit Number 5 PT-OP-B Current Condition Start: 10/18/20 12:16 Freq: Status: Active Protocol: Document 10/19/20 10:32 MB (Rec: 10/19/20 10:45 MB [id number]) Current Condition History of Current Condition Onset Date 2-3 weeks Current Complaints Medial left knee pain History of Current Condition Pt reports onset of pain in left leg 2-3 weeks ago. The pain settled into his left knee. In 1969, he tore his left medial meniscus when skiing and was immoblized and that was helpful. In 2001, he tore it again and underwent arthroscopic surgery. In 2015, he had a right knee injury and surgery. The injuries occurred with squatting movements. Pt reports 4/10 left medial knee pain. He is wearing a sleeve over his left knee. He likes to do exercises everyday to keep his stomach flat and help his back. He is icing his left knee and taking ibuprofen. PMH also includes: AAA, aortic valve replacement, vertebroplasty T1, pacemaker for SSS. Pt states that Dr. Alegre told him that he has to have an x-ray, then PT for 6 weeks, and then he can get a MRI. Pt is open to PT being helpful. Prior Treatments and Tests Left knee x-ray: NAD, mild to moderate OA, worst at medial femorotibial compartment, small joint effusion Treatment Goals Patient/Caregiver Goals To see if PT can resolve his issues so that he does not favor his left knee. He would like to be able to walk and stand without left knee pain. PT-OP-C Subjective Start: 10/18/20 12:16 Freq: Status: Active Protocol: Document 11/03/20 13:00 MB (Rec: 11/03/20 13:38 MB [id number]) OP-PT Subjective Patient Comments Patient Comments Received order for right knee. Pt states that he used the rolling pin on his right leg and the pain went away. He has no real knee pain. He feels tension in his left knee and awareness that something still isn't right. He is concerned about having another onset of intense pain. PT-OP-D Balance Start: 10/18/20 12:16 Freq: Status: Active Protocol: Document 10/19/20 10:32 MB (Rec: 10/19/20 14:09 MB [id number]) Balance Tests Other Other Balance Tests Performed Heel raises for PF strengthening: LOB with attempted SLS LLE requiring both hands on wall to keep balance PT-OP-G Mobility & Gait Start: 10/18/20 12:16 Freq: Status: Active Protocol: Document 10/19/20 10:32 MB (Rec: 10/19/20 14:09 MB [id number]) OP Gait Assessment Comments Gait Comments Gait is slow and antalgic, favoring the LLE and pt has decreased step-length and foot clearance and increased weight through lateral foot on the left PT-OP-J Posture/Palpation/Skin Start: 10/18/20 12:16 Freq: Status: Active Protocol: Document 10/19/20 10:32 MB (Rec: 10/19/20 14:09 MB [id number]) Posture Evaluation Comments Posture Comments Gait and standing posture in bare feet today. Standing posture: increased thoracic kyphosis, decreased lordosis and spinal curvature changes from lateral and posterior view, right shoulder is higher than the left with right scapula forward and protracted , right iliac crest is higher than the left, increased WB through right foot and increased Bk angle right foot Palpation: pain to palpation medial left knee joint line close to patella with tension many muscle groups including medial distal hamstring and adductors PT-OP-M Strength Start: 10/18/20 12:16 Freq: Status: Active Protocol: Document 10/19/20 10:32 MB (Rec: 10/19/20 14:09 MB [id number]) Hip Strength Hip Manual Muscle Testing Left Flexion (L2) 5 Normal Abduction 4 Good Adduction 4 Good Right Flexion (L2) 5 Normal Abduction 4 Good Adduction 4 Good Knee Strength Knee Manual Muscle Testing Left Comments Deferred in setting of pain Right Flexion (S2) 5 Normal Extension (L3) 5 Normal Ankle/Foot Strength Ankle and Foot Manual Muscle Testing Left Dorsiflexion (L4) 5 Normal Inversion 4 Good Eversion (S1) 4 Good Comments Heel raises x20 with both hands on wall and reports of calf discomfort, slower than right heel raises Right Dorsiflexion (L4) 5 Normal Inversion 5 Normal Eversion (S1) 5 Normal Comments Heel raises x20 with 1 finger support against wall Toe Strength Toe Manual Muscle Testing Left Great Toe Extension 5 Normal Right Great Toe Extension 5 Normal PT-OP-Q Treatments Start: 10/18/20 12:16 Freq: Status: Active Protocol: Document 11/03/20 13:00 MB (Rec: 11/03/20 13:38 MB [id number]) Therapeutic Exercises Supine Exercises Core progression Supine Exercise Name Abdominal drawing in, lumbar rotation, HS, mini march, bridge, knee fall ou Side bilateral Comments Level 1 band around knees with bridge Adductor stretch Comments Verbal review today Pelvic realignment exercises Comments Verbal review today Hamstring stretch Side bilateral Comments Opposite leg straight, AP with leg up in the air Paramjit stretch Side bilateral Comments Opposite leg bent, 45 sec hold Sitting Exercises Rolling pin self-massage Comments Pt demonstrates well today Standing Exercises band walk Standing Exercise Name Side stepping and backwards walking Comments Level 1 band around ankles, several reps PT-OP-T Assessment and Plan Start: 10/18/20 12:16 Freq: Status: Active Protocol: Document 11/03/20 13:00 MB (Rec: 11/03/20 13:38 MB [id number]) Physical Therapy Assessment Rehab Potential Rehabilitation Potential Fair Evaluation Complexity Number of Personal Factors/Comorbidities 1-2 Number of Body Systems Impaired 1-2 Clinical Presentation at Evaluation Evolving Impairments Impairments Activity Tolerance,Balance, Functional Mobility,Gait,Pain, Posture,ROM,Soft Tissue Mobility,Strength Other Impairments Personal factors include advanced age and history of many injuries and left knee surgery. Body systems affected include musculoskeletal and neuromuscular. His clinical presentation is evolving in setting of degenerative changes. Other Concerns Fall Risk Yes Goals 4 Structural Mill Supervisor Goal (LTG) Pt will perform progressive HEP with I including pelvic realignment, flexibility, balance and strengthening exercises to improve pain and functional strength by 12/20/20 . 11/03/20: Pt is performing LE stretches, quad massage with rolling pin, crab and backwards walking with resistance and core progression added today LTG Duration 8 weeks 3 Structural Mill Supervisor Goal (LTG) Pt will perform WNLs on a standardized balance test to decrease fall risk by 12/20/20. 11/03/20: Deferred today d/t favored progressing strengthening LTG Duration 8 weeks 2 Correction Goal (LTG) Pt will gait train at least 1400 feet in 6 minutes to improve community ambulation by 12/20/20. 11/03/20: Deferred today in favor of progressing strengthening LTG Duration 8 weeks 1 Correction Goal (LTG) Pt will present with an improved LEF score to reflect no more than 25% impairment by 12/20/20. 11/03/20: Deferred today in favor of progressing strengthening LTG Duration 8 weeks Assessment Summary Assessment Pt has now had two episodes of severe knee pain, left and then right knee, that was debilitating over a short period of time (about 6 weeks) . Since he denies acute injury , PT favors underlying anatomical change/weakness and metabolic/inflammatory issue. Right knee will now be added to PT course now that order received and current plan is already addressing things that will reflect improvement with both legs (exercises, balance , gait, LEF). Pt will con't to benefit from PT to progress strength and balance. He will benefit from ongoing manual work to improve fascial tension. Physical Therapy Plan Frequency and Duration Frequency of Treatment 2x/Week Duration of Treatment 8 weeks Plan of Care Start Date 11/03/20 Plan of Care End Date 12/20/20 Therapeutic Interventions Therapeutic Interventions Balance Training,Canalithic Repositioning,Gait Training, Home Exercise Program,Joint Mobilizations,Manual Therapy, Neuromuscular Re-education, Patient/Caregiver Education, Sensory Integration,Soft Tissue Mobilization,Taping, Therapeutic Activities, Therapeutic Exercises Modalities Cold Pack/Ice Massage,Electric Stimulation,Hot Packs, Ultrasound Next Visit Focus/Plan Next Note Type Treatment Note Next Visit Plan Ankle eversion and DF strengthening, balance test/ exercise and manual work. Consider sit to stands if knees are okay with this, consider teaching self-taping.
--- NOTE | 2020-11-03 15:44 | PT.OPPOC ---
Physical, Occupational & Speech Therapy At [facility] Current Diagnoses Pain in left knee (11/03/20) Visit Care Team Role Provider Type Laura Medrano MD Attending Provider Physician Primary Care Provider Referring Provider Specialty: Family Practice Address: [address] [place] [address], [facility] [place], [address] Email: [email or web address] Plan Of Care PT-OP-T Assessment and Plan Start: 10/18/20 12:16 Freq: Status: Active Protocol: Document 11/03/20 13:00 MB (Rec: 11/03/20 13:38 MB [id number]) Physical Therapy Assessment Rehab Potential Rehabilitation Potential Fair Evaluation Complexity Number of Personal Factors/Comorbidities 1-2 Number of Body Systems Impaired 1-2 Clinical Presentation at Evaluation Evolving Impairments Impairments Activity Tolerance,Balance, Functional Mobility,Gait,Pain, Posture,ROM,Soft Tissue Mobility,Strength Other Impairments Personal factors include advanced age and history of many injuries and left knee surgery. Body systems affected include musculoskeletal and neuromuscular. His clinical presentation is evolving in setting of degenerative changes. Other Concerns Fall Risk Yes Goals 4 Correction Goal (LTG) Pt will perform progressive HEP with I including pelvic realignment, flexibility, balance and strengthening exercises to improve pain and functional strength by 12/20/20 . 11/03/20: Pt is performing LE stretches, quad massage with rolling pin, crab and backwards walking with resistance and core progression added today LTG Duration 8 weeks 3 Correction Goal (LTG) Pt will perform WNLs on a standardized balance test to decrease fall risk by 12/20/20. 11/03/20: Deferred today d/t favored progressing strengthening LTG Duration 8 weeks 2 Correction Goal (LTG) Pt will gait train at least 1400 feet in 6 minutes to improve community ambulation by 12/20/20. 11/03/20: Deferred today in favor of progressing strengthening LTG Duration 8 weeks 1 Licensed Bondsman Goal (LTG) Pt will present with an improved LEF score to reflect no more than 25% impairment by 12/20/20. 11/03/20: Deferred today in favor of progressing strengthening LTG Duration 8 weeks Assessment Summary Assessment Pt has now had two episodes of severe knee pain, left and then right knee, that was debilitating over a short period of time (about 6 weeks) . Since he denies acute injury , PT favors underlying anatomical change/weakness and metabolic/inflammatory issue. Right knee will now be added to PT course now that order received and current plan is already addressing things that will reflect improvement with both legs (exercises, balance , gait, LEF). Pt will con't to benefit from PT to progress strength and balance. He will benefit from ongoing manual work to improve fascial tension. Physical Therapy Plan Frequency and Duration Frequency of Treatment 2x/Week Duration of Treatment 8 weeks Plan of Care Start Date 11/03/20 Plan of Care End Date 12/20/20 Therapeutic Interventions Therapeutic Interventions Balance Training,Canalithic Repositioning,Gait Training, Home Exercise Program,Joint Mobilizations,Manual Therapy, Neuromuscular Re-education, Patient/Caregiver Education, Sensory Integration,Soft Tissue Mobilization,Taping, Therapeutic Activities, Therapeutic Exercises Modalities Cold Pack/Ice Massage,Electric Stimulation,Hot Packs, Ultrasound Next Visit Focus/Plan Next Note Type Treatment Note Next Visit Plan Ankle eversion and DF strengthening, balance test/ exercise and manual work. Consider sit to stands if knees are okay with this, consider teaching self-taping. Plan of Care Dates Plan of Care Start Date 11/03/20 Plan of Care End Date 12/20/20 Electronically Signed by: Sandra Hatfield, PT 11/03/20 8210 Please Sign and Return: I have reviewed this Plan of Care and certify that the skilled therapy services above are required to meet the patient?s needs. Physician Signature Date Printed Name and Credentials Clinical Instructor Signature Printed Name and Credentials
--- NOTE | 2020-11-04 13:51 | PT.OTN ---
Current Diagnoses Pain in left knee (11/04/20) Physical Therapy Treatment Note PT-OP-A Visit Information Start: 10/18/20 12:16 Freq: Status: Active Protocol: Document 11/04/20 13:00 MB (Rec: 11/04/20 13:51 MB [id number]) Out-Patient Physical Therapy Visit Information Visit Information Visit Type Treatment Note Visit Note Medicare, for Life 09/25 before KX Visit Start Time 13:00 Visit Stop Time 13:45 Total Visit Minutes 45 Visit Number 6 PT-OP-B Current Condition Start: 10/18/20 12:16 Freq: Status: Active Protocol: Document 10/19/20 10:32 MB (Rec: 10/19/20 10:45 MB [id number]) Current Condition History of Current Condition Onset Date 2-3 weeks Current Complaints Medial left knee pain History of Current Condition Pt reports onset of pain in left leg 2-3 weeks ago. The pain settled into his left knee. In 1969, he tore his left medial meniscus when skiing and was immoblized and that was helpful. In 2001, he tore it again and underwent arthroscopic surgery. In 2015, he had a right knee injury and surgery. The injuries occurred with squatting movements. Pt reports 4/10 left medial knee pain. He is wearing a sleeve over his left knee. He likes to do exercises everyday to keep his stomach flat and help his back. He is icing his left knee and taking ibuprofen. PMH also includes: AAA, aortic valve replacement, vertebroplasty T1, pacemaker for SSS. Pt states that Dr. Alegre told him that he has to have an x-ray, then PT for 6 weeks, and then he can get a MRI. Pt is open to PT being helpful. Prior Treatments and Tests Left knee x-ray: NAD, mild to moderate OA, worst at medial femorotibial compartment, small joint effusion Treatment Goals Patient/Caregiver Goals To see if PT can resolve his issues so that he does not favor his left knee. He would like to be able to walk and stand without left knee pain. PT-OP-C Subjective Start: 10/18/20 12:16 Freq: Status: Active Protocol: Document 11/04/20 13:00 MB (Rec: 11/04/20 13:51 MB [id number]) OP-PT Subjective Patient Comments Patient Comments Pt states that he has had no more flare ups. PT-OP-D Balance Start: 10/18/20 12:16 Freq: Status: Active Protocol: Document 10/19/20 10:32 MB (Rec: 10/19/20 14:09 MB [id number]) Balance Tests Other Other Balance Tests Performed Heel raises for PF strengthening: LOB with attempted SLS LLE requiring both hands on wall to keep balance PT-OP-G Mobility & Gait Start: 10/18/20 12:16 Freq: Status: Active Protocol: Document 10/19/20 10:32 MB (Rec: 10/19/20 14:09 MB [id number]) OP Gait Assessment Comments Gait Comments Gait is slow and antalgic, favoring the LLE and pt has decreased step-length and foot clearance and increased weight through lateral foot on the left PT-OP-J Posture/Palpation/Skin Start: 10/18/20 12:16 Freq: Status: Active Protocol: Document 10/19/20 10:32 MB (Rec: 10/19/20 14:09 MB [id number]) Posture Evaluation Comments Posture Comments Gait and standing posture in bare feet today. Standing posture: increased thoracic kyphosis, decreased lordosis and spinal curvature changes from lateral and posterior view, right shoulder is higher than the left with right scapula forward and protracted , right iliac crest is higher than the left, increased WB through right foot and increased Bk angle right foot Palpation: pain to palpation medial left knee joint line close to patella with tension many muscle groups including medial distal hamstring and adductors PT-OP-M Strength Start: 10/18/20 12:16 Freq: Status: Active Protocol: Document 10/19/20 10:32 MB (Rec: 10/19/20 14:09 MB [id number]) Hip Strength Hip Manual Muscle Testing Left Flexion (L2) 5 Normal Abduction 4 Good Adduction 4 Good Right Flexion (L2) 5 Normal Abduction 4 Good Adduction 4 Good Knee Strength Knee Manual Muscle Testing Left Comments Deferred in setting of pain Right Flexion (S2) 5 Normal Extension (L3) 5 Normal Ankle/Foot Strength Ankle and Foot Manual Muscle Testing Left Dorsiflexion (L4) 5 Normal Inversion 4 Good Eversion (S1) 4 Good Comments Heel raises x20 with both hands on wall and reports of calf discomfort, slower than right heel raises Right Dorsiflexion (L4) 5 Normal Inversion 5 Normal Eversion (S1) 5 Normal Comments Heel raises x20 with 1 finger support against wall Toe Strength Toe Manual Muscle Testing Left Great Toe Extension 5 Normal Right Great Toe Extension 5 Normal PT-OP-Q Treatments Start: 10/18/20 12:16 Freq: Status: Active Protocol: Document 11/04/20 13:00 MB (Rec: 11/04/20 13:51 MB [id number]) Manual Therapy Treatment Other Other Manual Treatments STM right greater than left hip adductors, right vastus lateralis, right rectus femoris, right medial hamstring and right greater than left gastrocnemius and positional release PT-OP-T Assessment and Plan Start: 10/18/20 12:16 Freq: Status: Active Protocol: Document 11/04/20 13:00 MB (Rec: 11/04/20 13:51 MB [id number]) Physical Therapy Assessment Rehab Potential Rehabilitation Potential Fair Evaluation Complexity Number of Personal Factors/Comorbidities 1-2 Number of Body Systems Impaired 1-2 Clinical Presentation at Evaluation Evolving Impairments Impairments Activity Tolerance,Balance, Functional Mobility,Gait,Pain, Posture,ROM,Soft Tissue Mobility,Strength Other Impairments Personal factors include advanced age and history of many injuries and left knee surgery. Body systems affected include musculoskeletal and neuromuscular. His clinical presentation is evolving in setting of degenerative changes. Other Concerns Fall Risk Yes Goals 4 Skilled Nursing Goal (LTG) Pt will perform progressive HEP with I including pelvic realignment, flexibility, balance and strengthening exercises to improve pain and functional strength by 12/20/20 . 11/03/20: Pt is performing LE stretches, quad massage with rolling pin, crab and backwards walking with resistance and core progression added today LTG Duration 8 weeks 3 Estate Attorney Goal (LTG) Pt will perform WNLs on a standardized balance test to decrease fall risk by 12/20/20. 11/03/20: Deferred today d/t favored progressing strengthening LTG Duration 8 weeks 2 Skilled Nursing Goal (LTG) Pt will gait train at least 1400 feet in 6 minutes to improve community ambulation by 12/20/20. 11/03/20: Deferred today in favor of progressing strengthening LTG Duration 8 weeks 1 Skilled Nursing Goal (LTG) Pt will present with an improved LEF score to reflect no more than 25% impairment by 12/20/20. 11/03/20: Deferred today in favor of progressing strengthening LTG Duration 8 weeks Assessment Summary Assessment RLE manual work today and pt responds well and myofascial tension is much improved after treatment. Physical Therapy Plan Frequency and Duration Frequency of Treatment 2x/Week Duration of Treatment 8 weeks Plan of Care Start Date 11/03/20 Plan of Care End Date 12/20/20 Therapeutic Interventions Therapeutic Interventions Balance Training,Canalithic Repositioning,Gait Training, Home Exercise Program,Joint Mobilizations,Manual Therapy, Neuromuscular Re-education, Patient/Caregiver Education, Sensory Integration,Soft Tissue Mobilization,Taping, Therapeutic Activities, Therapeutic Exercises Modalities Cold Pack/Ice Massage,Electric Stimulation,Hot Packs, Ultrasound Next Visit Focus/Plan Next Note Type Treatment Note Next Visit Plan Standing calf stretch, ankle eversion and DF strengthening, balance test/exercise and manual work. Consider sit to stands if knees are okay with this, consider teaching self- taping.
--- NOTE | 2020-11-10 13:00 | PT.OTN ---
Current Diagnoses Pain in left knee (11/10/20) Physical Therapy Treatment Note PT-OP-A Visit Information Start: 10/18/20 12:16 Freq: Status: Active Protocol: Document 11/10/20 10:23 MA (Rec: 11/10/20 11:05 MA [id number]) Out-Patient Physical Therapy Visit Information Visit Information Visit Type Treatment Note Visit Start Time 10:18 Visit Stop Time 10:58 Total Visit Minutes 40 Visit Number 7 Number of TRAFFIC SIGNAL SUPERVISOR MAINTENANCE Visits 1 PT-OP-B Current Condition Start: 10/18/20 12:16 Freq: Status: Active Protocol: Document 10/19/20 10:32 MB (Rec: 10/19/20 10:45 MB [id number]) Current Condition History of Current Condition Onset Date 2-3 weeks Current Complaints Medial left knee pain History of Current Condition Pt reports onset of pain in left leg 2-3 weeks ago. The pain settled into his left knee. In 1969, he tore his left medial meniscus when skiing and was immoblized and that was helpful. In 2001, he tore it again and underwent arthroscopic surgery. In 2015, he had a right knee injury and surgery. The injuries occurred with squatting movements. Pt reports 4/10 left medial knee pain. He is wearing a sleeve over his left knee. He likes to do exercises everyday to keep his stomach flat and help his back. He is icing his left knee and taking ibuprofen. PMH also includes: AAA, aortic valve replacement, vertebroplasty T1, pacemaker for SSS. Pt states that Dr. Alegre told him that he has to have an x-ray, then PT for 6 weeks, and then he can get a MRI. Pt is open to PT being helpful. Prior Treatments and Tests Left knee x-ray: NAD, mild to moderate OA, worst at medial femorotibial compartment, small joint effusion Treatment Goals Patient/Caregiver Goals To see if PT can resolve his issues so that he does not favor his left knee. He would like to be able to walk and stand without left knee pain. PT-OP-C Subjective Start: 10/18/20 12:16 Freq: Status: Active Protocol: Document 11/10/20 10:23 MA (Rec: 11/10/20 11:05 MA [id number]) OP-PT Subjective Patient Comments Patient Comments Pt states his L knee is always achy and he has some pain in lateral calf now. He feels like he made a lot of improvement but has now stalled a bit in his recovery. PT-OP-D Balance Start: 10/18/20 12:16 Freq: Status: Active Protocol: Document 10/19/20 10:32 MB (Rec: 10/19/20 14:09 MB [id number]) Balance Tests Other Other Balance Tests Performed Heel raises for PF strengthening: LOB with attempted SLS LLE requiring both hands on wall to keep balance PT-OP-G Mobility & Gait Start: 10/18/20 12:16 Freq: Status: Active Protocol: Document 10/19/20 10:32 MB (Rec: 10/19/20 14:09 MB [id number]) OP Gait Assessment Comments Gait Comments Gait is slow and antalgic, favoring the LLE and pt has decreased step-length and foot clearance and increased weight through lateral foot on the left PT-OP-J Posture/Palpation/Skin Start: 10/18/20 12:16 Freq: Status: Active Protocol: Document 10/19/20 10:32 MB (Rec: 10/19/20 14:09 MB [id number]) Posture Evaluation Comments Posture Comments Gait and standing posture in bare feet today. Standing posture: increased thoracic kyphosis, decreased lordosis and spinal curvature changes from lateral and posterior view, right shoulder is higher than the left with right scapula forward and protracted , right iliac crest is higher than the left, increased WB through right foot and increased Bk angle right foot Palpation: pain to palpation medial left knee joint line close to patella with tension many muscle groups including medial distal hamstring and adductors PT-OP-M Strength Start: 10/18/20 12:16 Freq: Status: Active Protocol: Document 10/19/20 10:32 MB (Rec: 10/19/20 14:09 MB [id number]) Hip Strength Hip Manual Muscle Testing Left Flexion (L2) 5 Normal Abduction 4 Good Adduction 4 Good Right Flexion (L2) 5 Normal Abduction 4 Good Adduction 4 Good Knee Strength Knee Manual Muscle Testing Left Comments Deferred in setting of pain Right Flexion (S2) 5 Normal Extension (L3) 5 Normal Ankle/Foot Strength Ankle and Foot Manual Muscle Testing Left Dorsiflexion (L4) 5 Normal Inversion 4 Good Eversion (S1) 4 Good Comments Heel raises x20 with both hands on wall and reports of calf discomfort, slower than right heel raises Right Dorsiflexion (L4) 5 Normal Inversion 5 Normal Eversion (S1) 5 Normal Comments Heel raises x20 with 1 finger support against wall Toe Strength Toe Manual Muscle Testing Left Great Toe Extension 5 Normal Right Great Toe Extension 5 Normal PT-OP-Q Treatments Start: 10/18/20 12:16 Freq: Status: Active Protocol: Document 11/10/20 10:23 MA (Rec: 11/10/20 11:05 MA [id number]) Therapeutic Exercises Supine Exercises Piriformis Stretch Side bilateral Reps/Minutes 1' ea Hamstring stretch Side bilateral Comments Opposite leg straight, AP with leg up in the air Paramjit stretch Side bilateral Comments using belt for deeper stretch Sitting Exercises Eversion Side bilateral Equipment Used lvl 1 TB Reps/Minutes x10 Comments added to HEP DF Side bilateral Equipment Used lvl 1 TB Reps/Minutes x10 Comments added to HEP Rolling pin self-massage Sitting Exercise Name rolling L lateral gastroc Standing Exercises Calf Raises Standing Exercise Name Heel raises Equipment Used 6 step Reps/Minutes 10x Stretch Standing Exercise Name Gastroc stretch- added to HEP Side bilateral Comments on NAZ and standing against wall Self-Care/Home Management Treatment Education Patient Education Home Exercise Program Other Education Added resisted DF and eversion exercises as well as staggered stance gastroc stretch or using stair to stretch gastroc options to HEP PT-OP-T Assessment and Plan Start: 10/18/20 12:16 Freq: Status: Active Protocol: Document 11/10/20 10:23 MA (Rec: 11/10/20 11:05 MA [id number]) Physical Therapy Assessment Goals 4 Custodial Goal (LTG) Pt will perform progressive HEP with I including pelvic realignment, flexibility, balance and strengthening exercises to improve pain and functional strength by 12/20/20 . 11/03/20: Pt is performing LE stretches, quad massage with rolling pin, crab and backwards walking with resistance and core progression added today LTG Duration 8 weeks 3 Custodial Goal (LTG) Pt will perform WNLs on a standardized balance test to decrease fall risk by 12/20/20. 11/03/20: Deferred today d/t favored progressing strengthening LTG Duration 8 weeks 2 Public Address Systems Mechanic Goal (LTG) Pt will gait train at least 1400 feet in 6 minutes to improve community ambulation by 12/20/20. 11/03/20: Deferred today in favor of progressing strengthening LTG Duration 8 weeks 1 Custodial Goal (LTG) Pt will present with an improved LEF score to reflect no more than 25% impairment by 12/20/20. 11/03/20: Deferred today in favor of progressing strengthening LTG Duration 8 weeks Assessment Summary Assessment Pt has pain along L lateral gastroc today which decreases with self-STM with rolling pin . Began strengthening exercises, adding resisted DF and Eversion to HEP along with gastroc stretch in either staggered stance position or using stair. Physical Therapy Plan Frequency and Duration Frequency of Treatment 2x/Week Duration of Treatment 8 weeks Plan of Care Start Date 11/03/20 Plan of Care End Date 12/20/20 Therapeutic Interventions Therapeutic Interventions Balance Training,Canalithic Repositioning,Gait Training, Home Exercise Program,Joint Mobilizations,Manual Therapy, Neuromuscular Re-education, Patient/Caregiver Education, Sensory Integration,Soft Tissue Mobilization,Taping, Therapeutic Activities, Therapeutic Exercises Modalities Cold Pack/Ice Massage,Electric Stimulation,Hot Packs, Ultrasound Next Visit Focus/Plan Next Note Type Treatment Note Next Visit Plan Review new HEP: Standing calf stretch, ankle eversion and DF strengthening balance test/exercise and manual work. Consider sit to stands if knees are okay with this, consider teaching self- taping.
--- NOTE | 2020-11-12 09:46 | PT.OTN ---
Current Diagnoses Pain in left knee (11/12/20) Physical Therapy Treatment Note PT-OP-A Visit Information Start: 10/18/20 12:16 Freq: Status: Active Protocol: Document 11/12/20 09:01 MB (Rec: 11/12/20 09:44 MB [id number]) Out-Patient Physical Therapy Visit Information Visit Information Visit Type Treatment Note Visit Note Medicare, for Life before KX Visit Start Time 09:01 Visit Stop Time 09:45 Total Visit Minutes 44 Visit Number 8 Number of TRANSIT MECHANIC Visits 0 PT-OP-B Current Condition Start: 10/18/20 12:16 Freq: Status: Active Protocol: Document 10/19/20 10:32 MB (Rec: 10/19/20 10:45 MB [id number]) Current Condition History of Current Condition Onset Date 2-3 weeks Current Complaints Medial left knee pain History of Current Condition Pt reports onset of pain in left leg 2-3 weeks ago. The pain settled into his left knee. In 1969, he tore his left medial meniscus when skiing and was immoblized and that was helpful. In 2001, he tore it again and underwent arthroscopic surgery. In 2015, he had a right knee injury and surgery. The injuries occurred with squatting movements. Pt reports 4/10 left medial knee pain. He is wearing a sleeve over his left knee. He likes to do exercises everyday to keep his stomach flat and help his back. He is icing his left knee and taking ibuprofen. PMH also includes: AAA, aortic valve replacement, vertebroplasty T1, pacemaker for SSS. Pt states that Dr. Alegre told him that he has to have an x-ray, then PT for 6 weeks, and then he can get a MRI. Pt is open to PT being helpful. Prior Treatments and Tests Left knee x-ray: NAD, mild to moderate OA, worst at medial femorotibial compartment, small joint effusion Treatment Goals Patient/Caregiver Goals To see if PT can resolve his issues so that he does not favor his left knee. He would like to be able to walk and stand without left knee pain. PT-OP-C Subjective Start: 10/18/20 12:16 Freq: Status: Active Protocol: Document 11/12/20 09:01 MB (Rec: 11/12/20 09:44 MB [id number]) OP-PT Subjective Patient Comments Patient Comments Pt states that he woke up with bad right knee pain. PT-OP-D Balance Start: 10/18/20 12:16 Freq: Status: Active Protocol: Document 10/19/20 10:32 MB (Rec: 10/19/20 14:09 MB [id number]) Balance Tests Other Other Balance Tests Performed Heel raises for PF strengthening: LOB with attempted SLS LLE requiring both hands on wall to keep balance PT-OP-G Mobility & Gait Start: 10/18/20 12:16 Freq: Status: Active Protocol: Document 10/19/20 10:32 MB (Rec: 10/19/20 14:09 MB [id number]) OP Gait Assessment Comments Gait Comments Gait is slow and antalgic, favoring the LLE and pt has decreased step-length and foot clearance and increased weight through lateral foot on the left PT-OP-J Posture/Palpation/Skin Start: 10/18/20 12:16 Freq: Status: Active Protocol: Document 10/19/20 10:32 MB (Rec: 10/19/20 14:09 MB [id number]) Posture Evaluation Comments Posture Comments Gait and standing posture in bare feet today. Standing posture: increased thoracic kyphosis, decreased lordosis and spinal curvature changes from lateral and posterior view, right shoulder is higher than the left with right scapula forward and protracted , right iliac crest is higher than the left, increased WB through right foot and increased Bk angle right foot Palpation: pain to palpation medial left knee joint line close to patella with tension many muscle groups including medial distal hamstring and adductors PT-OP-M Strength Start: 10/18/20 12:16 Freq: Status: Active Protocol: Document 10/19/20 10:32 MB (Rec: 10/19/20 14:09 MB [id number]) Hip Strength Hip Manual Muscle Testing Left Flexion (L2) 5 Normal Abduction 4 Good Adduction 4 Good Right Flexion (L2) 5 Normal Abduction 4 Good Adduction 4 Good Knee Strength Knee Manual Muscle Testing Left Comments Deferred in setting of pain Right Flexion (S2) 5 Normal Extension (L3) 5 Normal Ankle/Foot Strength Ankle and Foot Manual Muscle Testing Left Dorsiflexion (L4) 5 Normal Inversion 4 Good Eversion (S1) 4 Good Comments Heel raises x20 with both hands on wall and reports of calf discomfort, slower than right heel raises Right Dorsiflexion (L4) 5 Normal Inversion 5 Normal Eversion (S1) 5 Normal Comments Heel raises x20 with 1 finger support against wall Toe Strength Toe Manual Muscle Testing Left Great Toe Extension 5 Normal Right Great Toe Extension 5 Normal PT-OP-Q Treatments Start: 10/18/20 12:16 Freq: Status: Active Protocol: Document 11/12/20 09:01 MB (Rec: 11/12/20 09:44 MB [id number]) Manual Therapy Treatment Other Other Manual Treatments STM and positional release B vastus lateralis, gastroc, medial hamstring, right knee joint approximation positional release, patellar lift; STM left rectus femoris Self-Care/Home Management Treatment Education Other Education Ed pt's on benefits from returning to doctor if ongoing concerns of new onset of right knee pain that was not caused by injury. Provided information on low inflammatory diet received from [facility] that might help metabolic inflammatory components to joint pain--ed pt in diet and hydration contributions to pain PT-OP-T Assessment and Plan Start: 10/18/20 12:16 Freq: Status: Active Protocol: Document 11/12/20 09:01 MB (Rec: 11/12/20 09:44 MB [id number]) Physical Therapy Assessment Rehab Potential Rehabilitation Potential Fair Evaluation Complexity Number of Personal Factors/Comorbidities 1-2 Number of Body Systems Impaired 1-2 Clinical Presentation at Evaluation Evolving Impairments Impairments Activity Tolerance,Balance, Functional Mobility,Gait,Pain, Posture,ROM,Soft Tissue Mobility,Strength Other Impairments Personal factors include advanced age and history of many injuries and left knee surgery. Body systems affected include musculoskeletal and neuromuscular. His clinical presentation is evolving in setting of degenerative changes. Other Concerns Fall Risk Yes Goals 4 Long-Term Goal (LTG) Pt will perform progressive HEP with I including pelvic realignment, flexibility, balance and strengthening exercises to improve pain and functional strength by 12/20/20 . 11/03/20: Pt is performing LE stretches, quad massage with rolling pin, crab and backwards walking with resistance and core progression added today LTG Duration 8 weeks 3 Long-Term Goal (LTG) Pt will perform WNLs on a standardized balance test to decrease fall risk by 12/20/20. 11/03/20: Deferred today d/t favored progressing strengthening LTG Duration 8 weeks 2 Picture Hanger Goal (LTG) Pt will gait train at least 1400 feet in 6 minutes to improve community ambulation by 12/20/20. 11/03/20: Deferred today in favor of progressing strengthening LTG Duration 8 weeks 1 Picture Hanger Goal (LTG) Pt will present with an improved LEF score to reflect no more than 25% impairment by 12/20/20. 11/03/20: Deferred today in favor of progressing strengthening LTG Duration 8 weeks Assessment Summary Assessment Ed pt on other contributions to pain--inflammation and pt to take this info and ask doctor any questions as needed . Physical Therapy Plan Frequency and Duration Frequency of Treatment 2x/Week Duration of Treatment 8 weeks Plan of Care Start Date 11/03/20 Plan of Care End Date 12/20/20 Therapeutic Interventions Therapeutic Interventions Balance Training,Canalithic Repositioning,Gait Training, Home Exercise Program,Joint Mobilizations,Manual Therapy, Neuromuscular Re-education, Patient/Caregiver Education, Sensory Integration,Soft Tissue Mobilization,Taping, Therapeutic Activities, Therapeutic Exercises Modalities Cold Pack/Ice Massage,Electric Stimulation,Hot Packs, Ultrasound Next Visit Focus/Plan Next Note Type Treatment Note Next Visit Plan Balance test/exercise and manual work. Consider sit to stands if knees are okay with this, consider teaching self- taping.
--- NOTE | 2020-11-15 09:45 | PT.OTN ---
Current Diagnoses Pain in left knee (11/15/20) Physical Therapy Treatment Note PT-OP-A Visit Information Start: 10/18/20 12:16 Freq: Status: Active Protocol: Document 11/15/20 09:02 MB (Rec: 11/15/20 09:45 MB [id number]) Out-Patient Physical Therapy Visit Information Visit Information Visit Type Treatment Note Visit Note Medicare, for Life before KX Visit Start Time 09:02 Visit Stop Time 09:45 Total Visit Minutes 43 Visit Number 9 Number of BILLING ADJUDICATOR Visits 0 PT-OP-B Current Condition Start: 10/18/20 12:16 Freq: Status: Active Protocol: Document 10/19/20 10:32 MB (Rec: 10/19/20 10:45 MB [id number]) Current Condition History of Current Condition Onset Date 2-3 weeks Current Complaints Medial left knee pain History of Current Condition Pt reports onset of pain in left leg 2-3 weeks ago. The pain settled into his left knee. In 1969, he tore his left medial meniscus when skiing and was immoblized and that was helpful. In 2001, he tore it again and underwent arthroscopic surgery. In 2015, he had a right knee injury and surgery. The injuries occurred with squatting movements. Pt reports 4/10 left medial knee pain. He is wearing a sleeve over his left knee. He likes to do exercises everyday to keep his stomach flat and help his back. He is icing his left knee and taking ibuprofen. PMH also includes: AAA, aortic valve replacement, vertebroplasty T1, pacemaker for SSS. Pt states that Dr. Alegre told him that he has to have an x-ray, then PT for 6 weeks, and then he can get a MRI. Pt is open to PT being helpful. Prior Treatments and Tests Left knee x-ray: NAD, mild to moderate OA, worst at medial femorotibial compartment, small joint effusion Treatment Goals Patient/Caregiver Goals To see if PT can resolve his issues so that he does not favor his left knee. He would like to be able to walk and stand without left knee pain. PT-OP-C Subjective Start: 10/18/20 12:16 Freq: Status: Active Protocol: Document 11/15/20 09:02 MB (Rec: 11/15/20 09:45 MB [id number]) OP-PT Subjective Patient Comments Patient Comments Pt states that this morning, he is fine. Yesterday, he woke up and both knees hurt. He got up and did his exercises. On Sunday, he walked around [place] [employer]. PT-OP-D Balance Start: 10/18/20 12:16 Freq: Status: Active Protocol: Document 10/19/20 10:32 MB (Rec: 10/19/20 14:09 MB [id number]) Balance Tests Other Other Balance Tests Performed Heel raises for PF strengthening: LOB with attempted SLS LLE requiring both hands on wall to keep balance PT-OP-G Mobility & Gait Start: 10/18/20 12:16 Freq: Status: Active Protocol: Document 10/19/20 10:32 MB (Rec: 10/19/20 14:09 MB [id number]) OP Gait Assessment Comments Gait Comments Gait is slow and antalgic, favoring the LLE and pt has decreased step-length and foot clearance and increased weight through lateral foot on the left PT-OP-J Posture/Palpation/Skin Start: 10/18/20 12:16 Freq: Status: Active Protocol: Document 10/19/20 10:32 MB (Rec: 10/19/20 14:09 MB [id number]) Posture Evaluation Comments Posture Comments Gait and standing posture in bare feet today. Standing posture: increased thoracic kyphosis, decreased lordosis and spinal curvature changes from lateral and posterior view, right shoulder is higher than the left with right scapula forward and protracted , right iliac crest is higher than the left, increased WB through right foot and increased Bk angle right foot Palpation: pain to palpation medial left knee joint line close to patella with tension many muscle groups including medial distal hamstring and adductors PT-OP-M Strength Start: 10/18/20 12:16 Freq: Status: Active Protocol: Document 10/19/20 10:32 MB (Rec: 10/19/20 14:09 MB [id number]) Hip Strength Hip Manual Muscle Testing Left Flexion (L2) 5 Normal Abduction 4 Good Adduction 4 Good Right Flexion (L2) 5 Normal Abduction 4 Good Adduction 4 Good Knee Strength Knee Manual Muscle Testing Left Comments Deferred in setting of pain Right Flexion (S2) 5 Normal Extension (L3) 5 Normal Ankle/Foot Strength Ankle and Foot Manual Muscle Testing Left Dorsiflexion (L4) 5 Normal Inversion 4 Good Eversion (S1) 4 Good Comments Heel raises x20 with both hands on wall and reports of calf discomfort, slower than right heel raises Right Dorsiflexion (L4) 5 Normal Inversion 5 Normal Eversion (S1) 5 Normal Comments Heel raises x20 with 1 finger support against wall Toe Strength Toe Manual Muscle Testing Left Great Toe Extension 5 Normal Right Great Toe Extension 5 Normal PT-OP-Q Treatments Start: 10/18/20 12:16 Freq: Status: Active Protocol: Document 11/15/20 09:02 MB (Rec: 11/15/20 09:45 MB [id number]) Therapeutic Exercises Sitting Exercises Hip ER with band Sitting Exercise Name Clam Side bilateral Reps/Minutes Level 2 band, then level 3 band Comments 10 reps slowly, squeeze glutes first LAQ with band around ankles Side bilateral Equipment Used Level 1 band Comments 10 reps, alternating legs, ankle pump 5 reps DF and eversion with band around ankles Side bilateral Equipment Used Level 2 band Comments 10 reps slowly with band around ankles, level 2 Standing Exercises Stretch Standing Exercise Name Ed pt to perform standing on floor only Comments Gastroc and soleus stretches B legs, 30 sec Neuro Re-Education Treatment Balance Activities Romberg and then Tandem in corner Comments No trouble with Romberg EO or EC Tandem is challenging B and worked up to a minute with some LOB, more difficult with left behind PT-OP-T Assessment and Plan Start: 10/18/20 12:16 Freq: Status: Active Protocol: Document 11/15/20 09:02 MB (Rec: 11/15/20 09:45 MB [id number]) Physical Therapy Assessment Rehab Potential Rehabilitation Potential Fair Evaluation Complexity Number of Personal Factors/Comorbidities 1-2 Number of Body Systems Impaired 1-2 Clinical Presentation at Evaluation Evolving Impairments Impairments Activity Tolerance,Balance, Functional Mobility,Gait,Pain, Posture,ROM,Soft Tissue Mobility,Strength Other Impairments Personal factors include advanced age and history of many injuries and left knee surgery. Body systems affected include musculoskeletal and neuromuscular. His clinical presentation is evolving in setting of degenerative changes. Other Concerns Fall Risk Yes Goals 4 Medical Sales Specialist Goal (LTG) Pt will perform progressive HEP with I including pelvic realignment, flexibility, balance and strengthening exercises to improve pain and functional strength by 12/20/20 . 11/03/20: Pt is performing LE stretches, quad massage with rolling pin, crab and backwards walking with resistance and core progression added today LTG Duration 8 weeks 3 Medical Sales Specialist Goal (LTG) Pt will perform WNLs on a standardized balance test to decrease fall risk by 12/20/20. 11/03/20: Deferred today d/t favored progressing strengthening LTG Duration 8 weeks 2 Medical Sales Specialist Goal (LTG) Pt will gait train at least 1400 feet in 6 minutes to improve community ambulation by 12/20/20. 11/03/20: Deferred today in favor of progressing strengthening LTG Duration 8 weeks 1 [facility] Goal (LTG) Pt will present with an improved LEF score to reflect no more than 25% impairment by 12/20/20. 11/03/20: Deferred today in favor of progressing strengthening LTG Duration 8 weeks Assessment Summary Assessment Progressed LE strengtheing today as well as balance exercises. Con't manual work next treatment. Anticipate a few more treatments only. Recommend follow-up with Dr. Medrano about possible underlying inflammatory process. PT will send this note to her. Physical Therapy Plan Frequency and Duration Frequency of Treatment 2x/Week Duration of Treatment 8 weeks Plan of Care Start Date 11/03/20 Plan of Care End Date 12/20/20 Therapeutic Interventions Therapeutic Interventions Balance Training,Canalithic Repositioning,Gait Training, Home Exercise Program,Joint Mobilizations,Manual Therapy, Neuromuscular Re-education, Patient/Caregiver Education, Sensory Integration,Soft Tissue Mobilization,Taping, Therapeutic Activities, Therapeutic Exercises Modalities Cold Pack/Ice Massage,Electric Stimulation,Hot Packs, Ultrasound Other Referrals/Consults Referrals/Consults Recommended Follow-up with Dr. Medrano about B intermittent knee pain and see if she wants to do any work-up/tests for inflammatory markers or any other knee diagnostics Next Visit Focus/Plan Next Note Type Treatment Note Next Visit Plan Manual work and exercise review as needed
--- NOTE | 2020-11-19 11:16 | PT.OTN ---
Current Diagnoses Pain in left knee (11/19/20) Physical Therapy Treatment Note PT-OP-A Visit Information Start: 10/18/20 12:16 Freq: Status: Active Protocol: Document 11/19/20 10:30 MB (Rec: 11/19/20 11:15 MB [id number]) Out-Patient Physical Therapy Visit Information Visit Information Visit Type Treatment Note Visit Note Medicare, for Life before KX Visit Start Time 10:30 Visit Stop Time 11:15 Total Visit Minutes 45 Visit Number 10 PT-OP-B Current Condition Start: 10/18/20 12:16 Freq: Status: Active Protocol: Document 10/19/20 10:32 MB (Rec: 10/19/20 10:45 MB [id number]) Current Condition History of Current Condition Onset Date 2-3 weeks Current Complaints Medial left knee pain History of Current Condition Pt reports onset of pain in left leg 2-3 weeks ago. The pain settled into his left knee. In 1969, he tore his left medial meniscus when skiing and was immoblized and that was helpful. In 2001, he tore it again and underwent arthroscopic surgery. In 2015, he had a right knee injury and surgery. The injuries occurred with squatting movements. Pt reports 4/10 left medial knee pain. He is wearing a sleeve over his left knee. He likes to do exercises everyday to keep his stomach flat and help his back. He is icing his left knee and taking ibuprofen. PMH also includes: AAA, aortic valve replacement, vertebroplasty T1, pacemaker for SSS. Pt states that Dr. Alegre told him that he has to have an x-ray, then PT for 6 weeks, and then he can get a MRI. Pt is open to PT being helpful. Prior Treatments and Tests Left knee x-ray: NAD, mild to moderate OA, worst at medial femorotibial compartment, small joint effusion Treatment Goals Patient/Caregiver Goals To see if PT can resolve his issues so that he does not favor his left knee. He would like to be able to walk and stand without left knee pain. PT-OP-C Subjective Start: 10/18/20 12:16 Freq: Status: Active Protocol: Document 11/19/20 10:30 MB (Rec: 11/19/20 11:16 MB [id number]) OP-PT Subjective Patient Comments Patient Comments Pt states that he is at maintenance level. The intense pain is gone in both knees. Patient Reported Progress Improving PT-OP-D Balance Start: 10/18/20 12:16 Freq: Status: Active Protocol: Document 10/19/20 10:32 MB (Rec: 10/19/20 14:09 MB [id number]) Balance Tests Other Other Balance Tests Performed Heel raises for PF strengthening: LOB with attempted SLS LLE requiring both hands on wall to keep balance PT-OP-G Mobility & Gait Start: 10/18/20 12:16 Freq: Status: Active Protocol: Document 10/19/20 10:32 MB (Rec: 10/19/20 14:09 MB [id number]) OP Gait Assessment Comments Gait Comments Gait is slow and antalgic, favoring the LLE and pt has decreased step-length and foot clearance and increased weight through lateral foot on the left PT-OP-J Posture/Palpation/Skin Start: 10/18/20 12:16 Freq: Status: Active Protocol: Document 10/19/20 10:32 MB (Rec: 10/19/20 14:09 MB [id number]) Posture Evaluation Comments Posture Comments Gait and standing posture in bare feet today. Standing posture: increased thoracic kyphosis, decreased lordosis and spinal curvature changes from lateral and posterior view, right shoulder is higher than the left with right scapula forward and protracted , right iliac crest is higher than the left, increased WB through right foot and increased Bk angle right foot Palpation: pain to palpation medial left knee joint line close to patella with tension many muscle groups including medial distal hamstring and adductors PT-OP-M Strength Start: 10/18/20 12:16 Freq: Status: Active Protocol: Document 10/19/20 10:32 MB (Rec: 10/19/20 14:09 MB [id number]) Hip Strength Hip Manual Muscle Testing Left Flexion (L2) 5 Normal Abduction 4 Good Adduction 4 Good Right Flexion (L2) 5 Normal Abduction 4 Good Adduction 4 Good Knee Strength Knee Manual Muscle Testing Left Comments Deferred in setting of pain Right Flexion (S2) 5 Normal Extension (L3) 5 Normal Ankle/Foot Strength Ankle and Foot Manual Muscle Testing Left Dorsiflexion (L4) 5 Normal Inversion 4 Good Eversion (S1) 4 Good Comments Heel raises x20 with both hands on wall and reports of calf discomfort, slower than right heel raises Right Dorsiflexion (L4) 5 Normal Inversion 5 Normal Eversion (S1) 5 Normal Comments Heel raises x20 with 1 finger support against wall Toe Strength Toe Manual Muscle Testing Left Great Toe Extension 5 Normal Right Great Toe Extension 5 Normal PT-OP-Q Treatments Start: 10/18/20 12:16 Freq: Status: Active Protocol: Document 11/19/20 10:30 MB (Rec: 11/19/20 11:15 MB [id number]) Therapeutic Exercises Supine Exercises Piriformis Stretch Comments Verbally reviewed today Core progression Comments Verbally reviewed today Adductor stretch Comments Verbally reviewed today Pelvic realignment exercises Comments Verbally reviewed today Hamstring stretch Comments Verbally reviewed today Sitting Exercises Hip ER with band Comments Verbally reviewed today LAQ with band around ankles Comments Verbally reviewed today DF and eversion with band around ankles Comments Verbally reviewed today Rolling pin self-massage Comments Verbally reviewed today Standing Exercises Stretch Standing Exercise Name Doorway pect, hip flexor and QL stretch added today Side bilateral Comments Reviewed gastroc stretch band walk Comments Reviewed crab walking and hip extension today Other Exercises Reviewed pt's self-reported exercises Comments Performed today in preparation for d/c Gait Training Gait Activity Gait with walking stick Comments 6MWT findings under goals today, gait throughout treatment is I and with little to no pain in either knee Neuro Re-Education Treatment Balance Activities Romberg and then Tandem in corner Comments Verbally reviewed today PT-OP-T Assessment and Plan Start: 10/18/20 12:16 Freq: Status: Active Protocol: Document 11/19/20 10:30 MB (Rec: 11/19/20 11:15 MB [id number]) Physical Therapy Assessment Rehab Potential Rehabilitation Potential Fair Evaluation Complexity Number of Personal Factors/Comorbidities 1-2 Number of Body Systems Impaired 1-2 Clinical Presentation at Evaluation Evolving Impairments Impairments Activity Tolerance,Balance, Functional Mobility,Gait,Pain, Posture,ROM,Soft Tissue Mobility,Strength Other Impairments Personal factors include advanced age and history of many injuries and left knee surgery. Body systems affected include musculoskeletal and neuromuscular. His clinical presentation is evolving in setting of degenerative changes. Other Concerns Fall Risk Yes Goals 4 Correction Goal (LTG) Pt will perform progressive HEP with I including pelvic realignment, flexibility, balance and strengthening exercises to improve pain and functional strength by 12/20/20 . 11/19/20: Pt is performing LE stretches, quad massage with rolling pin, crab and backwards walking with resistance band, tandem standing, core progression LTG Duration Met 3 Correction Goal (LTG) Pt will perform WNLs on a standardized balance test to decrease fall risk by 12/20/20. 11/19/20: Added tandem exercise to HEP LTG Duration Progressed 2 Correction Goal (LTG) Pt will gait train at least 1400 feet in 6 minutes to improve community ambulation by 12/20/20. 11/19/20; Pt gait trains 1629 feet in 6 minutes LTG Duration Met 1 Correction Goal (LTG) Pt will present with an improved LEF score to reflect no more than 25% impairment by 12/20/20. 11/19/20: LEF score reflects 22 .5% impairment 11/03/20: Deferred today in favor of progressing strengthening LTG Duration Met Assessment Summary Assessment Pt has met LEF, HEP and gait goals. He has progressed with balance. He has maximized PT potential. Revised his HEP program today. Will d/c PT. Physical Therapy Plan Other Referrals/Consults Referrals/Consults Recommended Follow-up with Dr. Medrano about B intermittent knee pain and see if she wants to do any work-up/tests for inflammatory markers or any other knee diagnostics
== END 2020-11-22 08:32 | disposition home or self-care (01) ==
LOC: PHYS 10:30
PROVIDERS: PCP Student in an Organized Health Care Education/Training Program; Referring Provider Student in an Organized Health Care Education/Training Program; Visit Provider Student in an Organized Health Care Education/Training Program
DX: M25.562 Pain in left knee (principal)
CPT/HCPCS: 97110; 97112; 97116; 97140; 97161; 97535

== ENCOUNTER → 2021-03-25 10:06 | Outpatient (CLI) | payer MEDICARE, OTHER, SELFPAY ==
--- NOTE | 2021-03-25 | DI.CT.S_ITS ---
PROCEDURE: CT LE LT W CON INDICATIONS: Pain in left knee TECHNIQUE: Noncontrast 1-1.5 mm axial sections acquired from the mid-patella to the proximal tibia, with coronal and sagittal reformats. COMPARISON: [facility], CR, XR KNEE LT 3V, 10/12/2020, 15:09. FINDINGS: Image quality: Excellent. Bones: No acute fracture or dislocation. There is moderate narrowing of the medial femorotibial compartment joint space with subchondral sclerosis and marginal osteophyte formation. Small marginal osteophytes are also seen at the lateral and anterior compartments without significant joint space narrowing. Somewhat prominent enthesophytes are seen at the superior and inferior patella. No suspicious osseous lesion. Mild degenerative changes at the proximal tibiofibular joint. Soft tissues: There is no significant joint effusion. The articular cartilages, ligaments, tendons, and menisci are not well evaluated with standard unenhanced CT. The musculature surrounding the knee is normal in bulk. Minimal popliteal atherosclerotic calcifications are present. There is mild nonspecific prepatellar subcutaneous soft tissue edema. A small medial popliteal cyst is present. IMPRESSION: 1. No acute osseous abnormality. 2. Tricompartmental degenerative changes are worst and moderate in severity at the medial femorotibial compartment. 3. Small medial popliteal cyst. Dictated by: Gianluca Retana M.D. on 03/25/2021 at 11:40 Approved by: Gianluca Retana M.D. on 03/25/2021 at 11:45
== END ==
PROVIDERS: PCP Student in an Organized Health Care Education/Training Program; Referring Provider Student in an Organized Health Care Education/Training Program; Visit Provider Student in an Organized Health Care Education/Training Program
DX: M71.22 Synovial cyst of popliteal space [Baker], left knee (principal); M25.562 Pain in left knee
CPT/HCPCS: 73700

== ENCOUNTER → 2021-05-06 09:39 | Outpatient (CLI) | payer MEDICARE, OTHER, SELFPAY ==
[2021-05-06 10:34] LABS: Add Manual Diff / Slide Review NO; Basophils Absolute Auto 0 /uL (0-100); Basophils Percent Auto 0.7 % (0-2); Eosinophils Absolute Auto 100 /uL (0-450); Eosinophils Percent Auto 1.2 % (2-4); Hematocrit 38.5 % (41-53); Lymphocytes Absolute Auto 1700 /uL (1100-4500); Lymphocytes Percent Auto 35.7 % (25-40); Mean Corpuscular HGB Conc 33.8 % (30-36); Mean Corpuscular Hemoglobin 32.7 PG (26-34); Mean Corpuscular Volume 96.7 fL (80-100); Monocytes Absolute Auto 600 /uL (0-900); Neutrophils Absolute Auto 2400 /uL (1500-7000); Neutrophils Percent Auto 50.4 % (50-75); Platelet Count 272 X10^3/uL (150-400); Red Blood Cell Count 3.98 X10^6/uL (4.5-5.9); Red Cell Distribution Width 13.4 % (11.6-14.8); White Blood Cell Count 4.7 X10^3/uL (4.5-11.0)
[2021-05-06 10:48] LABS: Alanine Aminotransferase 16 IU/L (<50); Albumin 4.2 g/dL (3.5-5.0); Albumin Globulin Ratio 1.4 (1.0-2.8); Alkaline Phosphatase 52 U/L (38-126); Aspartate Aminotransferase 27 IU/L (17-59); BUN Creatinine Ratio 16.7 (6-22); Bilirubin Total 0.7 mg/dL (0.2-1.3); Blood Urea Nitrogen 21 mg/dL (9-20); Calcium 9.4 mg/dL (8.4-10.2); Carbon Dioxide 30 mmol/L (22-32); Chloride 104 mmol/L (98-107); Cholesterol 186 mg/dL (140-199); Estimated Glomerular Filt Rate 55.5 mL/min (>60); Globulin 3.1 g/dL (1.7-4.1); Glucose 103 mg/dL (80-110); HDL Cholesterol 52 mg/dL (40-60); HEMOLYSIS < 15 (0-50); LDL Cholesterol Calculated 119 mg/dL (<100); Potassium 4.7 mmol/L (3.4-5.1); Sodium 140 mmol/L (137-145); Total Protein 7.3 g/dL (6.3-8.2); Triglycerides 75 mg/dL (35-150)
[2021-05-06 10:50] LABS: Hemoglobin A1C% w Est Avg Glu 5.7 % (4.0-6.0)
[2021-05-06 11:19] LABS: Prostate Specific Antigen Scrn 5.73 ng/mL (0.1-4.0)
[2021-05-06 11:21] LABS: Thyroid Stimulating Hormone 2.93 uIU/mL (0.47-4.68)
== END ==
PROVIDERS: PCP Student in an Organized Health Care Education/Training Program; Referring Provider Student in an Organized Health Care Education/Training Program; Visit Provider Student in an Organized Health Care Education/Training Program
DX: R73.01 Impaired fasting glucose (principal); E78.5 Hyperlipidemia, unspecified; Z00.00 Encounter for general adult medical examination without abnormal findings; R73.9 Hyperglycemia, unspecified; Z12.5 Encounter for screening for malignant neoplasm of prostate
CPT/HCPCS: 36415; 80053; 80061; 83036; 84443; 85025; G0103

== ENCOUNTER → 2021-05-18 13:50 | Outpatient (CLI) | payer MEDICARE, OTHER, SELFPAY ==
[2021-05-18 14:58] LABS: Hematocrit 39.5 % (41-53); Hemoglobin 13.2 g/dL (13.5-17.5); Mean Corpuscular HGB Conc 33.3 % (30-36); Mean Corpuscular Hemoglobin 32.1 PG (26-34); Mean Corpuscular Volume 96.5 fL (80-100); Platelet Count 327 X10^3/uL (150-400); Red Blood Cell Count 4.09 X10^6/uL (4.5-5.9); Red Cell Distribution Width 12.9 % (11.6-14.8); White Blood Cell Count 5.3 X10^3/uL (4.5-11.0)
[2021-05-18 15:21] LABS: C-Reactive Protein Quant < 0.5 mg/dL (<1.0)
[2021-05-18 15:26] LABS: Erythrocyte Sedimentation Rate 6 MM/HR (0-15)
== END ==
PROVIDERS: PCP Student in an Organized Health Care Education/Training Program; Referring Provider Internal Medicine; Visit Provider Internal Medicine
DX: I38 Endocarditis, valve unspecified (principal)
CPT/HCPCS: 36415; 85027; 85651; 86140; 87040

== ENCOUNTER → 2021-08-30 11:35 | Outpatient (CLI) | payer MEDICARE, OTHER, SELFPAY ==
[2021-08-31 08:04] LABS: PSA Free % 26.5 % (.); PSA, Total 6.2 ng/mL (0.0-4.0)
== END ==
PROVIDERS: PCP Student in an Organized Health Care Education/Training Program; Referring Provider Urology; Visit Provider Urology
DX: R97.20 Elevated prostate specific antigen [PSA] (principal)
CPT/HCPCS: 36415; 84153; 84154

== ENCOUNTER → 2021-12-08 07:32 | Outpatient (CLI) | payer MEDICARE, OTHER, SELFPAY ==
[2021-12-09 07:37] LABS: PSA Free % 26.4 % (.); PSA, Total 4.4 ng/mL (0.0-4.0)
== END ==
PROVIDERS: PCP Student in an Organized Health Care Education/Training Program; Referring Provider Urology; Visit Provider Urology
DX: R97.20 Elevated prostate specific antigen [PSA] (principal)
CPT/HCPCS: 36415; 84153; 84154

== ENCOUNTER → 2022-03-23 08:59 | Outpatient (CLI) | payer MEDICARE, OTHER, SELFPAY ==
[2022-03-26 11:14] LABS: PSA Free % 25.3 % (.)
== END ==
PROVIDERS: PCP Family Medicine; Referring Provider Urology; Visit Provider Urology
DX: R97.20 Elevated prostate specific antigen [PSA] (principal)
CPT/HCPCS: 36415; 84153; 84154

== ENCOUNTER → 2022-11-27 15:09 | Outpatient (CLI) | payer MEDICARE, OTHER, SELFPAY ==
[2022-11-29 10:12] LABS: PSA Free % 26.3 % (.); PSA, Total 6.2 ng/mL (0.0-4.0)
== END ==
PROVIDERS: PCP Family Medicine; Referring Provider Urology; Visit Provider Urology
DX: R97.20 Elevated prostate specific antigen [PSA] (principal)
CPT/HCPCS: 36415; 84153; 84154

== ENCOUNTER → 2022-12-27 09:12 | Outpatient (CLI) | payer MEDICARE, OTHER, SELFPAY ==
[2022-12-27 11:03] LABS: Add Manual Diff / Slide Review NO; Basophils Absolute Auto 100 /uL (0-100); Basophils Percent Auto 1.2 % (0-2); Eosinophils Absolute Auto 100 /uL (0-450); Eosinophils Percent Auto 1.9 % (2-4); Hematocrit 40.5 % (41-53); Hemoglobin 13.7 g/dL (13.5-17.5); Lymphocytes Absolute Auto 1700 /uL (1100-4500); Lymphocytes Percent Auto 29.9 % (25-40); Mean Corpuscular HGB Conc 33.8 % (30-36); Mean Corpuscular Hemoglobin 32.6 PG (26-34); Mean Corpuscular Volume 96.5 fL (80-100); Monocytes Absolute Auto 700 /uL (0-900); Monocytes Percent Auto 11.4 % (3-14); Neutrophils Absolute Auto 3200 /uL (1500-7000); Neutrophils Percent Auto 55.6 % (50-75); Platelet Count 322 X10^3/uL (150-400); Red Blood Cell Count 4.19 X10^6/uL (4.5-5.9); Red Cell Distribution Width 12.9 % (11.6-14.8); White Blood Cell Count 5.8 X10^3/uL (4.5-11.0)
[2022-12-27 11:34] LABS: Alanine Aminotransferase 23 IU/L (<50); Albumin 4.1 g/dL (3.5-5.0); Albumin Globulin Ratio 1.3 (1.0-2.8); Alkaline Phosphatase 54 U/L (38-126); Aspartate Aminotransferase 26 IU/L (17-59); BUN Creatinine Ratio 20.5 (6-22); Bilirubin Total 0.7 mg/dL (0.2-1.3); Blood Urea Nitrogen 24 mg/dL (9-20); Calcium 9.4 mg/dL (8.4-10.2); Carbon Dioxide 27 mmol/L (22-32); Chloride 103 mmol/L (98-107); Cholesterol 190 mg/dL (140-199); Estimated Glomerular Filt Rate > 60 mL/min (>60); Globulin 3.1 g/dL (1.7-4.1); Glucose 99 mg/dL (80-110); HDL Cholesterol 50 mg/dL (40-60); HEMOLYSIS < 15 (0-50); LDL Cholesterol Calculated 128 mg/dL (<100); Potassium 5.1 mmol/L (3.4-5.1); Sodium 138 mmol/L (137-145); Total Protein 7.2 g/dL (6.3-8.2); Triglycerides 61 mg/dL (35-150); VLDL Cholesterol Calculated 12 mg/dL (2-30)
[2022-12-27 11:53] LABS: Hemoglobin A1C% w Est Avg Glu 5.5 % (4.0-6.0)
[2022-12-27 11:57] LABS: Thyroid Stimulating Hormone 2.67 uIU/mL (0.47-4.68)
== END ==
PROVIDERS: PCP Family Medicine; Referring Provider Family Medicine; Visit Provider Family Medicine
DX: E78.5 Hyperlipidemia, unspecified (principal); R73.01 Impaired fasting glucose; I38 Endocarditis, valve unspecified; I34.1 Nonrheumatic mitral (valve) prolapse
CPT/HCPCS: 36415; 80053; 80061; 83036; 84443; 85025

== ENCOUNTER → 2023-01-11 11:12 | Outpatient (CLI) | payer MEDICARE, OTHER, SELFPAY ==
--- NOTE | 2023-01-11 | DI.RAD.S_ITS ---
PROCEDURE: XR SHOULDER LT MIN 2V INDICATIONS: SHOULDER PAIN TECHNIQUE: Three views of the shoulder were acquired. COMPARISON: None. FINDINGS: Bones: No acute fractures or dislocations. No suspicious bony lesions. Visualized ribs appear intact. Severe degenerative changes are seen at the glenohumeral joint with joint space narrowing and bulky marginal osteophyte formation. Mild to moderate acromioclavicular joint osteoarthrosis. Soft tissues: No suspicious soft tissue calcifications. A cardiac pacemaker is seen with pulse generator in the left chest. Sternotomy wires and prosthetic heart valve are noted. IMPRESSION: Severe glenohumeral osteoarthrosis and mild to moderate acromioclavicular joint osteoarthrosis. Approved by: Gianluca Retana M.D. on 01/11/2023 at 14:52
== END ==
PROVIDERS: PCP Family Medicine; Referring Provider Family Medicine; Visit Provider Family Medicine
DX: M25.512 Pain in left shoulder (principal); G89.29 Other chronic pain; M19.012 Primary osteoarthritis, left shoulder
CPT/HCPCS: 73030

== ENCOUNTER 2023-04-13 15:18 | Emergency (ER) | payer MEDICARE, OTHER, SELFPAY ==
[2023-04-13] VITALS (10 sets, daily range): BP systolic 111–146; BP diastolic 58–75; PULSE 79–86; RESP 16–26; TEMP 36.2; O2SAT 92–98; BMI 23.7
--- NOTE | 2023-04-13 15:29 | DI.RAD.S_ITS ---
PROCEDURE: XR CHEST 1V INDICATIONS: chest pain TECHNIQUE: One view of the chest was acquired. COMPARISON: [facility], , CHEST 1 VIEW, 02/01/2014, 8:02. FINDINGS: Surgical changes and devices: Prior sternotomy, dual chamber cardiac pacemaking device and leads appear normal. Prior lumbosacral junction vertebroplasty/bone cement from kyphoplasty again noted. A source of chest pain is not found. Lungs and pleura: Lungs are clear. No pleural effusions or pneumothorax. Mediastinum: Mediastinal contours appear normal. Heart size is normal. Bones and chest wall: No suspicious bony lesions. Overlying soft tissues appear unremarkable. IMPRESSION: No acute cardiopulmonary abnormality is seen. Dictated by: Andreas Thurman M.D. on 04/13/2023 at 16:04 Approved by: Andreas Thurman M.D. on 04/13/2023 at 16:05
--- NOTE | 2023-04-13 15:54 | PC.NURSE ---
Pacemaker interrogated by [employer].
[2023-04-13 16:11] LABS: Add Manual Diff / Slide Review NO; Basophils Absolute Auto 100 /uL (0-100); Basophils Percent Auto 0.6 % (0-2); Eosinophils Absolute Auto 100 /uL (0-450); Eosinophils Percent Auto 0.4 % (2-4); Hematocrit 42.3 % (41-53); Hemoglobin 14.1 g/dL (13.5-17.5); Lymphocytes Absolute Auto 1300 /uL (1100-4500); Lymphocytes Percent Auto 9.8 % (25-40); Mean Corpuscular HGB Conc 33.2 % (30-36); Mean Corpuscular Hemoglobin 31.9 PG (26-34); Monocytes Absolute Auto 700 /uL (0-900); Monocytes Percent Auto 5.5 % (3-14); Neutrophils Absolute Auto 10700 /uL (1500-7000); Neutrophils Percent Auto 83.7 % (50-75); Platelet Count 356 X10^3/uL (150-400); Red Blood Cell Count 4.41 X10^6/uL (4.5-5.9); White Blood Cell Count 12.8 X10^3/uL (4.5-11.0)
--- NOTE | 2023-04-13 16:11 | ED_ITS ---
HPI - General Adult General Chief complaint: Syncope Stated complaint: close to syncope/N/BP low/HR high Time Seen by Provider: 04/13/23 15:33 Source: patient Mode of arrival: Ambulatory Limitations: no limitations History of Present Illness HPI narrative: Patient is a 77-year-old male. Has a pacemaker in place for sick sinus syndrome. He states normally he does not feel when his pacemaker kicks in. He states he thinks he is only paced about 10% of the time. Today he was at his normal state of health when he had an episode of feeling very lightheaded. He stated that he did not pass out. Having some nausea. He took his blood pressure at home and it was low. He felt like his heart was beating fast. No abdominal pain. At the time of my exam he was feeling much better relatively asymptomatic. Related Data Home Medications Medication Instructions Recorded Confirmed aspirin 81 mg tablet,delayed 81 mg PO DAILY 06/20/21 04/24/22 release (Adult Aspirin Regimen) valacyclovir 1 gram tablet 1,000 mg PO .prn 12/20/21 04/24/22 (Valtrex) amoxicillin 500 mg capsule 500 mg PO .COMPLEX 04/24/22 Allergies Allergy/AdvReac Type Severity Reaction Status Date / Time atorvastatin Allergy Severe Anaphylaxis Verified 04/24/22 15:17 Review of Systems Constitutional Constitutional: Reports system reviewed and no additional complaints, except as documented Cardiovascular Cardiovascular: Reports system reviewed and no additional complaints, except as documented Respiratory Respiratory: Reports system reviewed and no additional complaints, except as documented Gastrointestinal Gastrointestinal: Reports system reviewed and no additional complaints, except as documented Integumentary/Breasts Skin/Breast: Reports system reviewed and no additional complaints, except as documented Neurologic Neurologic: Reports system reviewed and no additional complaints, except as documented Patient History Medical History Feeling of incomplete bladder emptying Incomplete emptying of bladder Lower urinary tract symptoms Elevated PSA History of pacemaker Hx of migraine headaches History of arthritis Surgical History Hx of vasectomy History of circumcision Hx of laparoscopy Family History Father Cerebrovascular accident (stroke) Migraines Social History marital status: household members: spouse Smoking Status: Former smoker Tobacco: How many years used: 6 alcohol intake: current caffeine: Yes Type(s) of exercise: regular exercise frequency: 3-4 times per week duration: 45-60 minutes/day Smoking Status: Former smoker alcohol intake frequency: holidays/special occasions only Substance Use Type: does not use Exam Initial Vital Signs Initial Vital Signs: Vital Signs Temperature 97.1 F L 04/13/23 15:20 Pulse Rate 86 04/13/23 15:20 Respiratory Rate 16 04/13/23 15:20 Blood Pressure 136/75 04/13/23 15:20 Pulse Oximetry 98 04/13/23 15:20 Oxygen Delivery Method Room Air 04/13/23 15:20 HENMT Head: normal to inspection and normocephalic Chest Chest: normal inspection of the chest Resp Effort & Inspection: normal respiratory effort Auscultation: clear to auscultation bilaterally Cardio Rate: regular rate Rhythm: regular rhythm GI Inspection: normal to inspection Skin General: no rashes or lesions noted Extrem General: normal to inspection Course Orders Ordered: ED Orders 04/13/23 15:29 XR chest 1V Stat 04/13/23 15:58 Complete Blood Count AUTO DIFF Stat Comprehensive Metabolic Panel Stat Lipase Stat Magnesium Stat PTT Partial Thromboplastin El Stat Prothrombin Time INR Stat Troponin & CK Cardiac Panel Stat 04/13/23 16:00 EKG-12 Lead Stat Vital Signs Vital signs: Vital Signs - 8 hr 04/13/23 15:20 04/13/23 15:40 04/13/23 15:40 Temperature 97.1 F L Pulse Rate 86 84 Respiratory Rate 16 Blood Pressure 136/75 146/69 H Pulse Oximetry 98 96 Oxygen Delivery Method Room Air 04/13/23 16:00 04/13/23 16:08 04/13/23 16:08 Temperature Pulse Rate 82 81 Respiratory Rate 24 Blood Pressure 130/69 Pulse Oximetry 97 96 Oxygen Delivery Method 04/13/23 16:15 04/13/23 16:15 04/13/23 16:30 Temperature Pulse Rate 82 79 Respiratory Rate 26 H 21 Blood Pressure 129/71 Pulse Oximetry 95 95 Oxygen Delivery Method 04/13/23 16:30 04/13/23 16:45 04/13/23 16:45 Temperature Pulse Rate 80 Respiratory Rate 18 Blood Pressure 124/62 111/58 L Pulse Oximetry 93 Oxygen Delivery Method 04/13/23 17:00 04/13/23 17:00 04/13/23 17:14 Temperature Pulse Rate 80 81 Respiratory Rate 18 17 Blood Pressure 115/63 Pulse Oximetry 93 92 Oxygen Delivery Method 04/13/23 17:15 Temperature Pulse Rate Respiratory Rate Blood Pressure 113/60 Pulse Oximetry Oxygen Delivery Method Medical Decision Making Lab Data 04/13/23 15:58 04/13/23 15:58 Labs: Lab Results 04/13/23 Range/Units 15:58 WBC 12.8 H (4.5-11.0) X10^3/uL RBC 4.41 L (4.5-5.9) X10^6/uL Hgb 14.1 (13.5-17.5) g/dL Hct 42.3 (41-53) % MCV 96.0 (80-100) fL MCH 31.9 (26-34) PG MCHC 33.2 (30-36) % RDW 13.0 (11.6-14.8) % Plt Count 356 (150-400) X10^3/uL Neut % (Auto) 83.7 H (50-75) % Lymph % (Auto) 9.8 L (25-40) % [place] % (Auto) 5.5 (3-14) % Eos % (Auto) 0.4 L (2-4) % Baso % (Auto) 0.6 (0-2) % Neut # (Auto) 38897 H (2881-6180) /uL Lymph # (Auto) 1300 (2720-0642) /uL [place] # (Auto) 700 (0-900) /uL Eos # (Auto) 100 (0-450) /uL Baso # (Auto) 100 (0-100) /uL PT 12.0 (9.4-12.5) SECONDS INR 1.0 (0.9-1.3) APTT 26 (25.1-36.5) SECONDS Sodium 137 (137-145) mmol/L Potassium 4.5 (3.4-5.1) mmol/L Chloride 103 (98-107) mmol/L Carbon Dioxide 26 (22-32) mmol/L BUN 28 H (9-20) mg/dL Creatinine 1.23 (0.66-1.25) mg/dL Estimated GFR 60 (>60) mL/min BUN/Creatinine Ratio 22.8 H (6-22) Glucose 99 (80-110) mg/dL Calcium 9.4 (8.4-10.2) mg/dL Magnesium 2.0 (1.6-2.3) mg/dL Total Bilirubin 0.7 (0.2-1.3) mg/dL AST 24 (17-59) IU/L ALT 22 (<50) IU/L Alkaline Phosphatase 55 (38-126) U/L Total Creatine Kinase 66 (55-170) U/L Troponin I < 0.012 (0.01-0.034) ng/mL Total Protein 7.6 (6.3-8.2) g/dL Albumin 4.3 (3.5-5.0) g/dL Globulin 3.3 (1.7-4.1) g/dL Albumin/Globulin Ratio 1.3 (1.0-2.8) Lipase 181 (23-300) U/L Imaging Data Chest x-ray: Radiologist's Impression: PROCEDURE: XR CHEST 1V INDICATIONS: chest pain TECHNIQUE: One view of the chest was acquired. COMPARISON: [facility], , CHEST 1 VIEW, 02/01/2014, 8:02. FINDINGS: Surgical changes and devices: Prior sternotomy, dual chamber cardiac pacemaking device and leads appear normal. Prior lumbosacral junction vertebroplasty/bone cement from kyphoplasty again noted. A source of chest pain is not found. Lungs and pleura: Lungs are clear. No pleural effusions or pneumothorax. Mediastinum: Mediastinal contours appear normal. Heart size is normal. Bones and chest wall: No suspicious bony lesions. Overlying soft tissues appear unremarkable. IMPRESSION: No acute cardiopulmonary abnormality is seen. ECG Data Attestation: I personally reviewed and interpreted this ECG as follows: Interpretation: Sinus rhythm Ventricular rate 74 Normal axis Normal QRS No ST T wave changes MDM Narrative Medical decision making narrative: Interrogated his [employer] pacemaker. At about 13 50 this afternoon he had a 44 second episode where he was paced. He feels that this is most likely the time when he was feeling the symptoms that brought him in today. He is currently asymptomatic. It appears that his pacemaker is working appropriately. His electrolytes are unremarkable. He was scheduled to see his elementary reading specialist sometime this month. I suspect that his symptoms were related to the episode that he had today. We did discuss strict return precautions. He expressed understanding and agreement with plan. Discharge Plan Departure Patient Disposition: Home Clinical Impression: Pre-syncope Activity Restrictions/Additional Instructions: Recommend that you take all of your medications as directed. I also recommend that you follow-up with your elementary reading specialist this month as scheduled. Follow-up with your primary doctor as well. Return to the emergency department for new symptoms. Prescriptions: No Action aspirin [Adult Aspirin Regimen] 81 mg tablet,delayed release (DR/EC) 81 mg PO DAILY valacyclovir [Valtrex] 1 gram tablet 1,000 mg PO .prn amoxicillin 500 mg capsule 500 mg PO .COMPLEX Patient Comments: Prn prior to oral/dental procedures. Rx Instructions: 500 mg orally; Referrals: Robel Rivas MD [Primary Care Provider] - Stand Alone Forms: Patient Portal/API
[2023-04-13 16:21] LABS: PTT Partial Thromboplastin Tim 26 SECONDS (25.1-36.5)
[2023-04-13 16:23] LABS: Alanine Aminotransferase 22 IU/L (<50); Albumin 4.3 g/dL (3.5-5.0); Albumin Globulin Ratio 1.3 (1.0-2.8); Alkaline Phosphatase 55 U/L (38-126); Aspartate Aminotransferase 24 IU/L (17-59); BUN Creatinine Ratio 22.8 (6-22); Bilirubin Total 0.7 mg/dL (0.2-1.3); Blood Urea Nitrogen 28 mg/dL (9-20); Calcium 9.4 mg/dL (8.4-10.2); Carbon Dioxide 26 mmol/L (22-32); Chloride 103 mmol/L (98-107); Creatine Kinase 66 U/L (55-170); Estimated Glomerular Filt Rate 60 mL/min (>60); Globulin 3.3 g/dL (1.7-4.1); Glucose 99 mg/dL (80-110); HEMOLYSIS < 15 (0-50); Lipase 181 U/L (23-300); Potassium 4.5 mmol/L (3.4-5.1); Sodium 137 mmol/L (137-145); Total Protein 7.6 g/dL (6.3-8.2)
[2023-04-13 16:34] LABS: Troponin I < 0.012 ng/mL (0.01-0.034)
== END 2023-04-13 17:31 | disposition home or self-care (01) ==
PROVIDERS: Emergency Provider Emergency Medicine; PCP Family Medicine
DX: R55 Syncope and collapse (principal); R07.9 Chest pain, unspecified; R11.0 Nausea; Z95.0 Presence of cardiac pacemaker
CPT/HCPCS: 36415; 71045; 80053; 82550; 83690; 83735; 84484; 85025; 85610; 85730; 93005; 99284

== ENCOUNTER 2023-04-23 12:29 | Emergency (ER) | payer MEDICARE, OTHER, SELFPAY ==
[2023-04-23 12:34] VITALS: BP 149/67; PULSE 72; RESP 16; TEMP 36.6; O2SAT 97; BMI 24.4
--- NOTE | 2023-04-23 12:58 | ED_ITS ---
HPI - Fall <Gwen Chung PA-C - Last Filed: 04/24/23 13:39> General Chief Complaint: Fall Stated Complaint: doc referral - fell hit head and cramped hamstring Time Seen by Provider: 04/23/23 12:57 Source: patient Mode of arrival: Wheelchair History of Present Illness HPI Narrative: 77-year-old male status post mechanical fall to face from stand due to left hamstring cramp and weakness. Per patient he was running when his left leg gave out causing him to face plant with subsequent abrasion to chin, eyebrow, right knee and left shoulder. Negative LOC. Takes ASA 81 mg due to remote history aortic valve replacement. No blood thinners. Per patient, he got up and went home to [facility]. He called his PCP due to fall with recommendation to present to the ED. Patient denies headache, visual changes, nausea, emesis, no numbness tingling to extremities, no cauda equina symptoms. Patient was able to bear weight and walk to ED. Patient reports he is up-to-date on his tetanus. Related Data Home Medications Medication Instructions Recorded Confirmed aspirin 81 mg tablet,delayed 81 mg PO DAILY 06/20/21 04/24/22 release (Adult Aspirin Regimen) valacyclovir 1 gram tablet 1,000 mg PO .prn 12/20/21 04/24/22 (Valtrex) amoxicillin 500 mg capsule 500 mg PO .COMPLEX 04/24/22 Previous Rx's Medication Instructions Recorded cyclobenzaprine 10 mg tablet 10 mg PO TID PRN muscle spasm #14 04/23/23 tabs Allergies Allergy/AdvReac Type Severity Reaction Status Date / Time atorvastatin Allergy Severe Anaphylaxis Verified 04/23/23 12:33 Review of Systems <Gwen Chung PA-C - Last Filed: 04/24/23 13:39> Constitutional Constitutional: Denies chills, Denies fatigue, Denies fever(s), Denies frequent falls, Denies lethargy and Denies weakness Eyes Eyes: Denies change in vision, Denies eye discharge, Denies irritation and Denies loss of vision ENT Ears, Nose, Mouth, and Throat: Denies change in voice, Denies dizziness, Denies neck pain, Denies sore throat and Denies throat swelling Cardiovascular Cardiovascular: Denies chest pain, Denies irregular heart rhythm, Denies lightheadedness, Denies palpitations, Denies dyspnea, Denies dyspnea on exertion and Denies orthopnea Respiratory Respiratory: Denies cough, Denies dyspnea, Denies dyspnea on exertion and Denies wheezing Gastrointestinal Gastrointestinal: Denies abdominal pain, Denies change in bowel habits, Denies diarrhea, Denies nausea and Denies vomiting Musculoskeletal Musculoskeletal: Reports muscle cramps, Reports muscle weakness, Denies neck pain and Denies numbness Integumentary/Breasts Skin/Breast: Denies pruritus, Denies erythema, Denies rash and Denies wounds Comments: Abrasion to left eyebrow, chin, right knee, left shoulder Neurologic Neurologic: Denies behavioral changes, Denies confusion, Denies dizziness, Denies frequent falls, Denies loss of vision, Denies numbness and Denies weakness Comments: Left lower extremity weakness. Denies cauda equina symptoms. Denies back pain. Psychiatric Psychiatric: Denies anxiety, Denies behavioral changes, Denies confusion, Denies depression, Denies homicidal ideation and Denies suicidal ideation Endocrine Endocrine: Denies fatigue, Denies flushing and Denies palpitations Hematologic/Lymphatic Hematologic/Lymphatic: Denies easy bruising Allergic/Immunologic Allergic/Immunologic: Denies urticaria, Denies throat swelling and Denies wheezing Patient History <Gwen Chung PA-C - Last Filed: 04/24/23 13:39> Medical History Feeling of incomplete bladder emptying Incomplete emptying of bladder Lower urinary tract symptoms Elevated PSA History of pacemaker Hx of migraine headaches History of arthritis Surgical History Hx of vasectomy History of circumcision Hx of laparoscopy Family History Father Cerebrovascular accident (stroke) Migraines Social History marital status: household members: spouse Smoking Status: Former smoker Tobacco: How many years used: 6 alcohol intake: current caffeine: Yes Type(s) of exercise: regular exercise frequency: 3-4 times per week duration: 45-60 minutes/day Smoking Status: Former smoker alcohol intake frequency: holidays/special occasions only Substance Use Type: does not use Exam <Gwen Chung PA-C - Last Filed: 04/24/23 13:39> Initial Vital Signs Initial Vital Signs: Vital Signs Temperature 97.8 F 04/23/23 12:34 Pulse Rate 72 04/23/23 12:34 Respiratory Rate 16 04/23/23 12:34 Blood Pressure 149/67 H 04/23/23 12:34 Pulse Oximetry 97 04/23/23 12:34 Oxygen Delivery Method Room Air 04/23/23 12:34 PHYSICAL EXAM: GEN:? Cooperative healthy appearing. NAD. HEENMT: Head:? Normocephalic. Left eyebrow abrasion with associated ecchymosis. Superficial chin abrasion. Ears:? Hearing grossly normal bilaterally. Eyes:? Normal appearance. Non-edematous, no icterus bilaterally. Nose:? External nose normal. Face:? Face symmetric. Mouth:? Oral mucosae normal. Throat:? posterior oropharynx normal. NECK: normal visual inspection. no nuchal rigidity. LUNGS: No audible wheezes heard CARDIO: Extremities non-edematous. MSK: Adequate range of motion all 4 extremities. No focal tenderness of left hip or knee, no crepitus. NEURO: Alert and oriented x 3. Speech appropriate and fluent. CNIII-XII grossly intact. No focal deficits. Moving all extremities, 5/5 strength all extremities with exception of 4/5 strength left hip flexion and trace left knee extension weakness. Achilles and patellar reflux 2+ bilaterally. Romberg negative. <Tani Trejo MD - Last Filed: 05/01/23 02:08> Initial Vital Signs Initial Vital Signs: Vital Signs Temperature 97.8 F 04/23/23 12:34 Pulse Rate 72 04/23/23 12:34 Respiratory Rate 16 04/23/23 12:34 Blood Pressure 149/67 H 04/23/23 12:34 Pulse Oximetry 97 04/23/23 12:34 Oxygen Delivery Method Room Air 04/23/23 12:34 Course <Gwen Chung PA-C - Last Filed: 04/24/23 13:39> Vital Signs Vital signs: Vital Signs - 8 hr 04/23/23 12:34 04/23/23 14:02 Temperature 97.8 F 98.5 F Pulse Rate 72 58 L Respiratory Rate 16 16 Blood Pressure 149/67 H 115/64 Pulse Oximetry 97 97 Oxygen Delivery Method Room Air Room Air <Tani Trejo MD - Last Filed: 05/01/23 02:08> Vital Signs Vital signs: Vital Signs - 8 hr 04/23/23 12:34 04/23/23 14:02 Temperature 97.8 F 98.5 F Pulse Rate 72 58 L Respiratory Rate 16 16 Blood Pressure 149/67 H 115/64 Pulse Oximetry 97 97 Oxygen Delivery Method Room Air Room Air MDM - Fall <Gwen Chung PA-C - Last Filed: 04/24/23 13:39> MDM Narrative Medical decision making narrative: 77-year-old male status post mechanical fall to face from stand due to left hamstring cramp and weakness. Concern for differential diagnosis of leg cramp versus leg fracture. [place] head CT and exam does not indicate CT head needed. On exam. No concerning findings such as bony tenderness to palpation for acute fractures. Findings consistent with left lower extremity leg cramp and possible weakness. Patient discharged home with Flexeril as needed. Patient instructed to follow up with PCP for left lower extremity weakness and if cramping persists. Plan of care discussed and ER precautions given to patient. Patient instructed to return to ED if concerning signs or symptoms. Patient states understanding and is in agreement with plan. Medical records reviewed. 04/24/2023: Spoke with patient on phone for follow-up to assess symptoms. Patient AAO x 3, speech is appropriate and fluent. Excellent recall. Patient reports overall doing well. Denies neurologic change. No altered mental status, no headache, no visual change, no nausea, no vomiting, no hemispheric weakness. Patient reports was evaluated by PCP and started on Meloxicam for left hamstring strain and will be initiating PT. Reviewed ER precautions with patient with strict instruction to return to ED if any neurologic signs or symptoms. Discharge Plan Departure Patient Disposition: Home Clinical Impression: Cramps of left lower extremity Accident due to mechanical fall without injury Qualifiers: Encounter type: initial encounter Qualified Code(s): W19.XXXA - Unspecified fall, initial encounter Activity Restrictions/Additional Instructions: You were evaluated today in the emergency department for mechanical fall and left hamstring muscle spasms. Exam is reassuring without concerning findings. For the muscle spasms you were prescribed Flexeril 10 mg every 8 hours as needed. Your prescription was sent to the [facility] in [place]. Per discussion please use caution with taking medication as may cause sedation. Please continue to use your single pronged cane due to the left leg weakness. Please follow-up with your PCP in reference to left leg weakness. If any concerning signs or symptoms such as neurologic change, headache, nausea, vomiting, inability to void, or other concerning symptoms please return to the ED. Thank you for allowing us to be involved in your care. Prescriptions: New cyclobenzaprine 10 mg tablet 10 mg PO TID PRN (Reason: muscle spasm) Qty: 14 0RF No Action aspirin [Adult Aspirin Regimen] 81 mg tablet,delayed release (DR/EC) 81 mg PO DAILY valacyclovir [Valtrex] 1 gram tablet 1,000 mg PO .prn amoxicillin 500 mg capsule 500 mg PO .COMPLEX Patient Comments: Prn prior to oral/dental procedures. Rx Instructions: 500 mg orally; Referrals: Robel Rivas MD [Primary Care Provider] - Stand Alone Forms: Patient Portal/API ED Sign-out <Tani Trejo MD - Last Filed: 05/01/23 02:08> Cosign ED Attending Kalpesh Attestation: I was immediately available in the department for consultation. Documentation has been reviewed. I [place] head CT rule suggests imaging should be considered, and I asked that the patien be called on 04/24 to confirm he is doing well and re-enforce need to return if he develops CERVANTES, nausea, etc
--- NOTE | 2023-04-23 13:27 | PC.NURSE ---
provider at bedside
[2023-04-23 14:02] VITALS: BP 115/64; PULSE 58; RESP 16; TEMP 36.9; O2SAT 97
== END 2023-04-23 14:13 | disposition home or self-care (01) ==
PROVIDERS: Emergency Provider Physician Assistant Surgical; PCP Family Medicine
DX: R25.2 Cramp and spasm (principal); W19.XXXA Unspecified fall, initial encounter
CPT/HCPCS: 99281

== ENCOUNTER → 2023-06-06 10:21 | Outpatient (CLI) | payer MEDICARE, OTHER, SELFPAY ==
[2023-06-06 11:00] LABS: Add Manual Diff / Slide Review NO; Basophils Absolute Auto 100 /uL (0-100); Basophils Percent Auto 0.9 % (0-2); Eosinophils Absolute Auto 100 /uL (0-450); Hematocrit 41.2 % (41-53); Hemoglobin 13.9 g/dL (13.5-17.5); Lymphocytes Absolute Auto 1900 /uL (1100-4500); Lymphocytes Percent Auto 25.2 % (25-40); Mean Corpuscular HGB Conc 33.6 % (30-36); Mean Corpuscular Hemoglobin 32.4 PG (26-34); Mean Corpuscular Volume 96.5 fL (80-100); Monocytes Absolute Auto 1000 /uL (0-900); Monocytes Percent Auto 13.6 % (3-14); Neutrophils Absolute Auto 4500 /uL (1500-7000); Neutrophils Percent Auto 59.3 % (50-75); Platelet Count 322 X10^3/uL (150-400); Red Blood Cell Count 4.27 X10^6/uL (4.5-5.9); Red Cell Distribution Width 12.9 % (11.6-14.8); White Blood Cell Count 7.6 X10^3/uL (4.5-11.0)
[2023-06-06 11:17] LABS: BUN Creatinine Ratio 22.4 (6-22); Blood Urea Nitrogen 26 mg/dL (9-20); Calcium 9.9 mg/dL (8.4-10.2); Carbon Dioxide 27 mmol/L (22-32); Chloride 106 mmol/L (98-107); Estimated Glomerular Filt Rate > 60 mL/min (>60); Glucose 86 mg/dL (80-110); HEMOLYSIS < 15 (0-50); Potassium 5.3 mmol/L (3.4-5.1); Sodium 140 mmol/L (137-145)
[2023-06-08 10:30] LABS: PSA Free % 32.4 % (.); PSA, Total 5.9 ng/mL (0.0-4.0)
== END ==
LOC: LAB 10:22 → RESP 10:26
PROVIDERS: PCP Family Medicine; Referring Provider Urology; Visit Provider Urology
DX: Z01.818 Encounter for other preprocedural examination (principal); Z01.812 Encounter for preprocedural laboratory examination; R97.20 Elevated prostate specific antigen [PSA]
CPT/HCPCS: 36415; 80048; 84153; 84154; 85025; 93005

== ENCOUNTER → 2023-06-14 08:51 | Outpatient (CLI) | payer MEDICARE, OTHER, SELFPAY ==
--- NOTE | 2023-06-14 08:53 | DI.CT.S_ITS ---
PROCEDURE: CT UE LT WO CON INDICATIONS: Primary osteoarthritis, left shoulder TECHNIQUE: Noncontrast 0.75 mm thick sections acquired from the acromioclavicular joint to the inferior scapula, with coronal and sagittal reformatting. COMPARISON: [facility], CR, XR SHOULDER LT MIN 2V, 01/11/2023, 11:17. FINDINGS: Image quality: Diagnostic Bones: Severe glenohumeral degenerative changes, with prominent osteophytes at the axillary pouch. Moderate to severe acromioclavicular degenerative changes also seen. Glenohumeral alignment is maintained. Soft tissues: Bursal and joint effusion. Suspected calcific tendinopathy. Partially seen left chest wall pulse generator. No high-grade atrophy of the rotator cuff muscle bellies. IMPRESSION: Severe glenohumeral degenerative changes, with particularly prominent osteophytes at the axillary pouch. Moderate to severe acromioclavicular degenerative changes. Bursal and joint effusion. Suspected calcific tendinopathy Surgical planning CT. Dictated by: Priyank Howell M.D. on 06/14/2023 at 14:21 Approved by: Priyank Howell M.D. on 06/14/2023 at 14:24
== END ==
PROVIDERS: PCP Family Medicine; Referring Provider Orthopaedic Surgery; Visit Provider Orthopaedic Surgery
DX: M19.012 Primary osteoarthritis, left shoulder (principal); M25.412 Effusion, left shoulder
CPT/HCPCS: 73200

== ENCOUNTER 2023-07-12 06:05 | Day surgery (SDC) | payer MEDICARE, OTHER, SELFPAY ==
[2023-07-03 09:42] VITALS: BMI 23.0
[2023-07-12] VITALS (9 sets, daily range): BP systolic 85–125; BP diastolic 50–82; PULSE 62–88; RESP 10–16; TEMP 36.2–36.9; O2SAT 92–98; BMI 23.0
--- NOTE | 2023-07-12 06:39 | DI.RAD.S_ITS ---
PROCEDURE: XR SHOULDER LT MIN 2V INDICATIONS: RTSA TECHNIQUE: 2 views of the shoulder were acquired. COMPARISON: [facility], CR, XR SHOULDER LT MIN 2V, 01/11/2023, 11:17. FINDINGS: Bones: Left shoulder arthroplasty with reserve prosthesis in expected position and alignment. Soft tissues: Overlying postsurgical changes noted. IMPRESSION: Expected postsurgical changes. Dictated by: Walter Juarez M.D. on 07/12/2023 at 9:56 Approved by: Walter Juarez M.D. on 07/12/2023 at 9:56
[2023-07-12] MEDS: LACTATED RINGERS 1,000 ML 42 ML IV ×2 (07:00→08:53)
[2023-07-12] MEDS: ACETAMINOPHEN 325 MG TABLET 975 MG PO (07:01)
--- NOTE | 2023-07-12 07:23 | PM.PREOP ---
Pre-operative Note Interval Note History & Physical reviewed/Exam performed by Physician: Yes Changes to H&P: No
--- NOTE | 2023-07-12 07:59 | SUR.PREOP ---
0745; time out done for left shoulder intrascalene block; placed on color television console monitor and oxygen at 2 liters via nasal cannula. Tolerated procedure without difficulty.
--- NOTE | 2023-07-12 07:59 | SUR.PREOP ---
Block start time [0745] . Monitoring initiated and maintained throughout procedure. Oxygen and medications given per anesthesiologist instructions. Patient remained stable throughout procedure, no adverse reactions noted. Block end time [0755].
[2023-07-12] MEDS: CEFAZOLIN 2 GM/100 ML PREMIX 100 ML IV (08:00)
[2023-07-12] MEDS: TRANEXAMIC ACID 1,000 MG VIAL 1000 MG INJ (08:05)
--- NOTE | 2023-07-12 08:26 | SUR.OPER ---
Beach chair on padded OR bed. Head on gel donut secured with tape over gauze. Non-operative arm secured <90 degrees abduction on padded arm board. Pillow under knees. Safety belt at thigh. Cloth tape over blanket over lower legs.
[2023-07-12] MEDS: BUPIVACAINE 0.25% (PF) 30 ML, EPINEPHrine 0.15 MG INJ (08:36)
[2023-07-12] MEDS: KETOROLAC 30 MG/ML VIAL 15 MG IV (09:50)
--- NOTE | 2023-07-12 11:40 | PM.OP.1 ---
Operative Date/Time/Diagnoses Date of procedure: 07/12/23 Time of procedure: 11:41 Pre-op diagnosis: Left glenohumeral arthritis Post-op diagnosis: same Procedure & Clinicians Procedure: Left reverse total shoulder arthroplasty Same procedure as scheduled: Yes Indications: Indications: This is a 77-year-old male who has left shoulder glenohumeral arthritis. Symptoms have been present for years, insidious onset. Patient has failed conservative therapy. After extensive discussion in clinic, they wished to go forward with surgery. Risks and benefits were described including the risk of infection, bleeding, damage to internal structures including nerves. We also discussed the risk of failure of surgery and the need for revision surgery as well as the risk of anesthesia. The patient expressed understanding with these risks and wished to go forward with surgery. Surgeon: Ulices Toussaint [employer] Technician: Dolly Aguilar Anesthesia Type: General Operative Notes Findings: Findings: Osteoarthritis of the glenoid and humeral head intact rotator cuff as noted on preoperative imaging and under direct visualization Closure Type: primary Specimen(s): none sent Prosthetic devices, grafts, tissues, transplants, or devices: Tornier implants Base plate: 29, full wedge Glenosphere: 39 mm Stem: Perform 4. Poly: +0 concentric Estimated Blood Loss (mL): 50 Blood products transfused: none Procedure in detail: Patient was seen in the preoperative holding unit. The correct left shoulder was identified and marked with my initials. Again we discussed the risks and benefits of surgery and they wished to go forward with surgery. The patient was brought back to the operating room and placed supine on the operating table. Smooth endotracheal intubation was performed by anesthesia. All prominences were padded and they were placed into the beach chair position. Intravenous antibiotics were given. The left shoulder was then prepped with the standard sterile preparation and draping. A time-out was then performed in my initials were again identified on the correct shoulder. 1 g of IV tranexamic acid was given. A standard deltopectoral incision was made. Skin flaps were made. The cephalic vein was identified and retracted laterally. This was protected throughout the remainder of the case. Sharp dissection was made along the deltoid, subacromial and subcoracoid space to release adhesions. The conjoined tendon was identified and the axillary nerve was palpated and continuous using the tug test. It was protected throughout the remainder of the case. A brown retractor was placed underneath the deltoid muscle and a darach retractor underneath the conjoint tendon. The anterior circumflex artery and associated veins on the lower border of the subscapularis were identified and tied off using 0-Vicryl. The biceps tendon was identified in the bicipital groove. This was released from its sheath, and taken from its origin on the glenoid and tied into the pectoralis tendon for a solid tenodesis. We then began a subscapularis peel. The subscapularis was tagged with an Ethibond suture. A 360 degree circumferential release of the subscapularis was performed with protection of the axillary nerve. The coracohumeral ligament was released at the base of the coracoid. The coracoacromial ligament was left intact. The shoulder was then dislocated. Osteophytes were removed using combination of rongeur and osteotome. The rotator cuff was noted to be intact. An intramedullary guide was used set at version of 30?. Using an oscillating saw a conservative humeral head cut was made. Impaction reamers were reamed up to a size 4 stem with a built-in angle 135?. A neck protector was placed. Attention was then turned to the glenoid. After retracting the humeral head posteriorly a circumferential release was performed of the capsule with protection of the axillary nerve. The labrum was then released starting at the biceps anchor and going around the rim a small amount of triceps was released from the inferior glenoid. A center guide pin was then placed using the guide, followed by Reamer. After adequate cartilage was removed the center drill hole was drilled and measured. The base plate was then implanted and screwed into place. The superior drill hole was drilled and filled in a nonlocking fashion, followed by the inferior and anterior holes in locking fashion, the posterior hole was also filled. A 39 glenosphere was then selected and screwed into place onto the base plate. Turning back to the humerus, the humeral head was delivered and trialed with a 0 concentric. The arm was taken through range of motion and this was felt to be stable. The trial was then removed and a dilute Betadine wash was then performed with 1 L of sterile saline. Before placing the final implant, drill holes were made in the bicipital groove for the subscapularis repair, and sutures were passed through the drill holes. The final stem was then impacted into the humerus. The shoulder was then reduced and again brought through range of motion and was felt to be stable. The interval was then closed using #2 Ethibond. The subscapularis was then repaired using a modified racking hitch with nice loupes. The skin was closed with 2-0 Vicryl and Monocryl followed by Aquacel dressing. Patient was awoken from anesthesia and brought back to the postoperative recovery unit without issue. They were placed into a sling. Assisting participation: This operation could not have been safely performed (without compromising the technical results or length of the procedure) without the assistance of a skilled surgical instrument maker. The surgical instrument maker was medically necessary for proper positioning, retraction and manipulation of instruments, proper exposure, graft prep, and manipulation of tissue. Complications: none Post-operative Condition: stable Disposition: PACU Plan for aftercare: Postoperative instructions: Sling to remain on for 6 weeks. No external rotation past neutral for 6 weeks. Okay for the sling to come off for shower. Okay to shower over the Aquacel dressing. If any water gets underneath the dressing, remove the dressing. First postoperative visit in 2 weeks.
== END 2023-07-12 11:00 | disposition home or self-care (01) ==
LOC: OR 06:06 → AC 06:08
PROVIDERS: PCP Family Medicine; Referring Provider Orthopaedic Surgery; Visit Provider Orthopaedic Surgery
PROC: (CPT 23472; principal; 2023-07-12 07:45)
DX: M19.012 Primary osteoarthritis, left shoulder (principal); G89.18 Other acute postprocedural pain
CPT/HCPCS: 23472; 64450; 73030; C1776; J0171; J0330; J0690; J1100; J1885; J2250; J2704; J3010

== ENCOUNTER → 2023-09-19 15:12 | Outpatient (CLI) | payer MEDICARE, OTHER, SELFPAY | PROVIDERS: PCP Family Medicine; Visit Provider Urology | DX: R39.14 Feeling of incomplete bladder emptying (principal); R33.9 Retention of urine, unspecified; R39.9 Unspecified symptoms and signs involving the genitourinary system | CPT/HCPCS: 87086 ==

== ENCOUNTER → 2023-12-12 11:49 | Outpatient (CLI) | payer MEDICARE, OTHER, SELFPAY ==
[2023-12-14 12:36] LABS: PSA, Total 5.9 ng/mL (0.0-4.0)
== END ==
PROVIDERS: PCP Family Medicine; Referring Provider Urology; Visit Provider Urology
DX: R97.20 Elevated prostate specific antigen [PSA] (principal)
CPT/HCPCS: 36415; 84153; 84154

== ENCOUNTER → 2024-06-03 09:16 | Outpatient (CLI) | payer MEDICARE, OTHER, SELFPAY ==
[2024-06-04 13:10] LABS: PSA Free % 26.7 % (.)
== END ==
PROVIDERS: PCP Family Medicine; Referring Provider Urology; Visit Provider Urology
DX: R97.20 Elevated prostate specific antigen [PSA] (principal)
CPT/HCPCS: 36415; 84153; 84154

== ENCOUNTER → 2024-06-18 17:06 | Outpatient (CLI) | payer MEDICARE, OTHER, SELFPAY | PROVIDERS: PCP Family Medicine; Visit Provider Urology | DX: R39.9 Unspecified symptoms and signs involving the genitourinary system (principal); R33.9 Retention of urine, unspecified; R97.20 Elevated prostate specific antigen [PSA]; R39.14 Feeling of incomplete bladder emptying; N40.1 Benign prostatic hyperplasia with lower urinary tract symptoms; N13.8 Other obstructive and reflux uropathy; Z68.24 Body mass index [BMI] 24.0-24.9, adult | CPT/HCPCS: 51798; 87086; 99213 ==

== ENCOUNTER → 2024-12-22 14:45 | Outpatient (CLI) | payer MEDICARE, OTHER, SELFPAY ==
[2024-12-25 07:41] LABS: PSA, Total 6.5 ng/mL (0.0-4.0)
== END ==
PROVIDERS: PCP Family Medicine; Referring Provider Urology; Visit Provider Urology
DX: R97.20 Elevated prostate specific antigen [PSA] (principal)
CPT/HCPCS: 36415; 84153; 84154

== ENCOUNTER 2025-01-09 10:22 | Outpatient (RCR) | payer MEDICARE, OTHER, SELFPAY ==
--- NOTE | 2025-01-09 14:39 | OT.OP.EVAL ---
Visit Care Team Role Provider Type Robel Rivas MD Family Provider Physician Primary Care Provider Specialty: Family Practice Address: [address] [place] [address], [facility], [place], [address] Email: [email or web address] Ana M Stubbs PA-C Attending Provider Physician Referring Provider Specialty: Orthopedic Surgery Address: [address] [place] [address], [address] Fax: Email: [email or web address] Occupational Therapy Initial Evaluation OT Outpatient Adult Evaluation Start: 01/09/25 13:16 Freq: Status: Active Protocol: Document 01/09/25 13:17 AMS (Rec: 01/09/25 13:50 AMS [id number]) General Information - Adult Visit Number 04/18; 04/27; visit -> KX modifier Plan of Care Dates 01/09/25 - 02/06/25 Insurance Medicare Information Visit Start Time 10:45 Visit Stop Time 11:30 Treatment Setting Outpatient Care Note Type Initial Evaluation Identification Yes Confirmed Identification Self, José Luis Confirmed By Assessment/Plan Treatment Assessment Pt had PT in 2020 w/ Sandra; medical history collected included the following: in 1969, he tore his left medial meniscus from skiing and was immobilized and that was helpful; in 2001, he tore it again and underwent arthroscopic surgery; in 2015, he had a right knee injury and surgery; injuries were subsequent to squatting. AAA, aortic valve replacement, vertebroplasty T1, pacemaker for SSS. According to June 2021, medical report medical history is significant for pacemaker, syncope, essential tremor, DJD, and lumbar radiculopathy, hyperlipidemia. Cataract extraction bilateral completed in 2017; vertebroplasty completed in 2010. He is retired; he was in the [employer]. He is now working for [employer] in [place] and just returned from 2 month cruise from . Saw Ana M Stubbs PA-C, 12/30/24 for orthopedic consult, here at [facility]; indicated that pain and finger numbness, brace doesn't help; however, in session, stated that the brace was beneficial and that he was wearing it at all times except when bathing and/or using the computer. Has ceased push-ups given pain/discomfort. She indicated that she ordered independently visualized x-rays of the right wrist taken on 12/30/2024 which showed no acute fracture or dislocation. He was referred for evaluation and treatment of CTS. He is right hand dominant. Reported that symptoms presented approx 2 months ago. Good bilateral opposition, distal palmar crease. No significant intrinsic tightness noted; denied pain of the R thumb w / all oppositional and/or resistance based exercises/as well as french binder strength testing to establish a baseline. Uses laptop w/ computer based tasks. 0-48 degrees active R wrist ext vs 0-45 degrees active L wrist ext; 0-50 degrees active R wrist flex vs 0-48 degrees active L wrist flex. 0-30 degrees bilateral active R wrist UD . 0-15 degrees active R wrist RD vs 0-20 degrees active L wrist RD. Report discomfort of R wrist w/ AROM. (-) reproduction of numbness or tingling w/ phalen's test or tinel's test bilaterally. 5/5 MMT w/ B wrist flex, wrist ext, RD, UD. Dynamometer II Strength Testing Results with elbow in 90 degrees Flexion = R french binder 55.0# of force (compared to same-aged 75+ male peers 65.7 +/- 21.0# of force) versus L french binder 70.0# of force (compared to same-aged 75+ male peers 55.0 +/- 17.0# of force). Dynamometer II Strength Testing Results with Elbow Extended = R french binder 52.0# of force versus L french binder 75.0# of force. Reports that he is going to be seeing OCTAVIO Viramontes, following week. He has not yet had EMG nerve conduction assessment done. Given that tinel's and phalen's test were negative, would need to have EMG to confirm median nerve compression, as well as return to PCP for alternative referral for deQuervain's syndrome and/or arthritic changes, if either of these are the underlying diagnoses/causing discomfort. Home Exercise Instructed in passive wrist ext w/ and without use of Program TT w/ fingers flexed vs extended, w/ hold for 20-30 sec , 2-3 times per day and/or as needed w/ elbow flex 90 degrees. Instructed in passive wrist flex w/ hold for 20-30 sec, 2-3 times per day and/or as needed w/ elbow flex 90 degrees. Wearing splint at night if CTS is underlying cause of discomfort. Recommend EMG at this time. Length of treatment 4 (weeks) Plan of Care Start 01/09/25 Date Plan of Care End 02/06/25 Date Treatment Frequency Once a Week Therapeutic Contents Active Range of Motion,Adaptive Equipment Education, Functional Activities,Home Exercise Program,Joint Protection,Neurodevelopment Treatment,Neuromuscular Re- Education,Self-Care,Stretching/Flexibility Activities, Therapeutic Activities,Therapeutic Exercises,Modalities ,Sensory Re-education Modalities As Needed,As Prescribed Additional Types of Heat/Ice/Contrast baths/Ultrasound/Paraffin Modalities Other Suggested Return to orthopedic UE specialist Referrals
--- NOTE | 2025-01-09 14:40 | OT.OP.EVAL ---
Visit Care Team Role Provider Type Robel Rivas MD Family Provider Physician Primary Care Provider Specialty: Family Practice Address: [address] [place] [address], [facility], [place], [address] Email: [email or web address] Ana M Stubbs PA-C Attending Provider Physician Referring Provider Specialty: Orthopedic Surgery Address: [address] [place] [address], [address] Fax: Email: [email or web address] Occupational Therapy Initial Evaluation OT Outpatient Adult Evaluation Start: 01/09/25 13:16 Freq: Status: Active Protocol: Document 01/09/25 13:17 AMS (Rec: 01/09/25 13:50 AMS [id number]) General Information - Adult Visit Number 04/18; 04/27; visit -> KX modifier Plan of Care Dates 01/09/25 - 02/06/25 Insurance Medicare Information Visit Start Time 10:45 Visit Stop Time 11:30 Treatment Setting Outpatient Care Note Type Initial Evaluation Identification Yes Confirmed Identification Self, José Luis Confirmed By Assessment/Plan Treatment Assessment Pt had PT in 2020 w/ Sandra; medical history collected included the following: in 1969, he tore his left medial meniscus from skiing and was immobilized and that was helpful; in 2001, he tore it again and underwent arthroscopic surgery; in 2015, he had a right knee injury and surgery; injuries were subsequent to squatting. AAA, aortic valve replacement, vertebroplasty T1, pacemaker for SSS. According to June 2021, medical report medical history is significant for pacemaker, syncope, essential tremor, DJD, and lumbar radiculopathy, hyperlipidemia. Cataract extraction bilateral completed in 2017; vertebroplasty completed in 2010. He is retired; he was in the [employer]. He is now working for [employer] in [place] and just returned from 2 month cruise from . Saw Ana M Stubbs PA-C, 12/30/24 for orthopedic consult, here at [facility]; indicated that pain and finger numbness, brace doesn't help; however, in session, stated that the brace was beneficial and that he was wearing it at all times except when bathing and/or using the computer. Has ceased push-ups given pain/discomfort. She indicated that she ordered independently visualized x-rays of the right wrist taken on 12/30/2024 which showed no acute fracture or dislocation. He was referred for evaluation and treatment of CTS. He is right hand dominant. Reported that symptoms presented approx 2 months ago. Good bilateral opposition, distal palmar crease. No significant intrinsic tightness noted; denied pain of the R thumb w / all oppositional and/or resistance based exercises/as well as key worker strength testing to establish a baseline. Uses laptop w/ computer based tasks. 0-48 degrees active R wrist ext vs 0-45 degrees active L wrist ext; 0-50 degrees active R wrist flex vs 0-48 degrees active L wrist flex. 0-30 degrees bilateral active R wrist UD . 0-15 degrees active R wrist RD vs 0-20 degrees active L wrist RD. Report discomfort of R wrist w/ AROM. (-) reproduction of numbness or tingling w/ phalen's test or tinel's test bilaterally. 5/5 MMT w/ B wrist flex, wrist ext, RD, UD. Dynamometer II Strength Testing Results with elbow in 90 degrees Flexion = R key worker 55.0# of force (compared to same-aged 75+ male peers 65.7 +/- 21.0# of force) versus L key worker 70.0# of force (compared to same-aged 75+ male peers 55.0 +/- 17.0# of force). Dynamometer II Strength Testing Results with Elbow Extended = R key worker 52.0# of force versus L key worker 75.0# of force. Reports that he is going to be seeing OCTAVIO Viramontes, following week. He has not yet had EMG nerve conduction assessment done. Given that tinel's and phalen's test were negative, would need to have EMG to confirm median nerve compression, as well as return to PCP for alternative referral for deQuervain's syndrome and/or arthritic changes, if either of these are the underlying diagnoses/causing discomfort. Home Exercise Instructed in passive wrist ext w/ and without use of Program TT w/ fingers flexed vs extended, w/ hold for 20-30 sec , 2-3 times per day and/or as needed w/ elbow flex 90 degrees. Instructed in passive wrist flex w/ hold for 20-30 sec, 2-3 times per day and/or as needed w/ elbow flex 90 degrees. Wearing splint at night if CTS is underlying cause of discomfort. Recommend EMG at this time. Length of treatment 4 (weeks) Plan of Care Start 01/09/25 Date Plan of Care End 02/06/25 Date Treatment Frequency Once a Week Therapeutic Contents Active Range of Motion,Adaptive Equipment Education, Functional Activities,Home Exercise Program,Joint Protection,Neurodevelopment Treatment,Neuromuscular Re- Education,Self-Care,Stretching/Flexibility Activities, Therapeutic Activities,Therapeutic Exercises,Modalities ,Sensory Re-education Modalities As Needed,As Prescribed Additional Types of Heat/Ice/Contrast baths/Ultrasound/Paraffin Modalities Other Suggested Return to orthopedic UE specialist Referrals
--- NOTE | 2025-02-16 09:41 | OT.OP.DC ---
Visit Care Team Role Provider Type Robel Rivas MD Family Provider Physician Primary Care Provider Address: [address] [place] [address], [facility] [place], [address] Email: [email or web address] Ana M Stubbs PA-C Attending Provider Physician Referring Provider Address: [address] [place] [address], [address] Fax: Email: [email or web address] OT Outpatient OT Outpatient Adult Evaluation Start: 01/09/25 13:16 Freq: Status: Active Protocol: Document 01/09/25 13:17 AMS (Rec: 01/09/25 13:50 AMS [id number]) General Information - Adult Visit Information Visit Number 04/18; 04/27; visit -> KX modifier Plan of Care Dates 01/09/25 - 02/06/25 Insurance Medicare Information Session Time Visit Start Time 10:45 Visit Stop Time 11:30 Setting Treatment Setting Outpatient Care Visit Type Note Type Initial Evaluation Identification Identification Yes Confirmed Identification Self, José Luis Confirmed By Assessment/Plan Assessment Treatment Assessment Pt had PT in 2020 w/ Sandra; medical history collected included the following: in 1969, he tore his left medial meniscus from skiing and was immobilized and that was helpful; in 2001, he tore it again and underwent arthroscopic surgery; in 2015, he had a right knee injury and surgery; injuries were subsequent to squatting. AAA, aortic valve replacement, vertebroplasty T1, pacemaker for SSS. According to June 2021, medical report medical history is significant for pacemaker, syncope, essential tremor, DJD, and lumbar radiculopathy, hyperlipidemia. Cataract extraction bilateral completed in 2017; vertebroplasty completed in 2010. He is retired; he was in the [employer]. He is now working for [employer] [place] and just returned from 2 month cruise from . Saw Ana M Stubbs PA-C, 12/30/24 for orthopedic consult, here at [facility]; indicated that pain and finger numbness, brace doesn't help; however, in session, stated that the brace was beneficial and that he was wearing it at all times except when bathing and/or using the computer. Has ceased push-ups given pain/discomfort. She indicated that she ordered independently visualized x-rays of the right wrist taken on 12/30/2024 which showed no acute fracture or dislocation. He was referred for evaluation and treatment of CTS. He is right hand dominant. Reported that symptoms presented approx 2 months ago. Good bilateral opposition, distal palmar crease. No significant intrinsic tightness noted; denied pain of the R thumb w / all oppositional and/or resistance based exercises/as well as computator strength testing to establish a baseline. Uses laptop w/ computer based tasks. [employer] UE Outcome Measure. Open a tight or new jar = moderate difficulty; recreational activities in which you take some force or impact through your arm, shoulder or hand = mild difficulty; tingling in your arm, shoulder or hand = mild. Pain Assessment Grid = indication of 3 out of 10 on pain scale relative to the volar surface of the wrist particularly the ulnar side. 0-48 degrees active R wrist ext vs 0-45 degrees active L wrist ext; 0-50 degrees active R wrist flex vs 0-48 degrees active L wrist flex. 0-30 degrees bilateral active R wrist UD . 0-15 degrees active R wrist RD vs 0-20 degrees active L wrist RD. Report discomfort of R wrist w/ AROM. (-) reproduction of numbness or tingling w/ phalen's test or tinel's test bilaterally. 5/5 MMT w/ B wrist flex, wrist ext, RD, UD. Dynamometer II Strength Testing Results with elbow in 90 degrees Flexion = R computator 55.0# of force (compared to same-aged 75+ male peers 65.7 +/- 21.0# of force) versus L computator 70.0# of force (compared to same-aged 75+ male peers 55.0 +/- 17.0# of force). Dynamometer II Strength Testing Results with Elbow Extended = R computator 52.0# of force versus L computator 75.0# of force. Reports that he is going to be seeing OCTAVIO Viramontes, following week. He has not yet had EMG nerve conduction assessment done. Given that tinel's and phalen's test were negative, would need to have EMG to confirm median nerve compression, as well as return to PCP for alternative referral for deQuervain's syndrome and/or arthritic changes, if either of these are the underlying diagnoses/causing discomfort. Home Exercise Instructed in passive wrist ext w/ and without use of Program TT w/ fingers flexed vs extended, w/ hold for 20-30 sec , 2-3 times per day and/or as needed w/ elbow flex 90 degrees. Instructed in passive wrist flex w/ hold for 20-30 sec, 2-3 times per day and/or as needed w/ elbow flex 90 degrees. Wearing splint at night if CTS is underlying cause of discomfort. Recommend EMG at this time. Plan Length of treatment 4 (weeks) Plan of Care Start 01/09/25 Date Plan of Care End 02/06/25 Date Treatment Frequency Once a Week Therapeutic Contents Active Range of Motion,Adaptive Equipment Education, Functional Activities,Home Exercise Program,Joint Protection,Neurodevelopment Treatment,Neuromuscular Re- Education,Self-Care,Stretching/Flexibility Activities, Therapeutic Activities,Therapeutic Exercises,Modalities ,Sensory Re-education Modalities As Needed,As Prescribed Additional Types of Heat/Ice/Contrast baths/Ultrasound/Paraffin Modalities Other Suggested Return to orthopedic UE specialist Referrals Functional Wrist/Hand Scan Hand Side Sensory Assessment Sensory Profile2 OT Outpatient Treatment Note - Adult Start: 01/09/25 13:16 Freq: Status: Active Protocol: Document 02/16/25 09:39 [facility] (Rec: 02/16/25 09:41 [facility] [id number]) OT Outpatient Adult Treatment Note Visit Information Plan of Care Dates 01/09/25 - 02/06/25 Visit Type Note Type Discharge Summary - Subjective Observations José Luis has not been seen in the outpatient setting by OT since 01/09/25 and outpatient OT POC on 02/06/25 ; thus, recommend d/c from outpatient OT services and clinician to re-evaluate as deemed appropriate by PCP w / receipt of new referral. - - - Assessment Assessment of José Luis has not been seen in the outpatient setting by OT Improvement since 01/09/25 and outpatient OT POC on 02/06/25 ; thus, recommend d/c from outpatient OT services and clinician to re-evaluate as deemed appropriate by PCP w / receipt of new referral. - Plan Therapy Discharge from Occupational Therapy Recommendations
== END 2025-02-16 13:07 | disposition home or self-care (01) ==
LOC: OT 10:22
PROVIDERS: Family Provider Family Medicine; PCP Family Medicine; Referring Provider Physician Assistant Surgical; Visit Provider Physician Assistant Surgical
DX: G56.01 Carpal tunnel syndrome, right upper limb (principal)
CPT/HCPCS: 97110; 97165

== ENCOUNTER → 2025-02-12 10:15 | Outpatient (CLI) | payer MEDICARE, OTHER, SELFPAY ==
[2025-02-12 12:31] LABS: INR 1.1 (0.9-1.3); Prothrombin Time 11.9 SECONDS (9.4-12.5)
== END ==
PROVIDERS: Family Provider Family Medicine; PCP Family Medicine; Referring Provider Orthopaedic Surgery; Visit Provider Orthopaedic Surgery
DX: M19.031 Primary osteoarthritis, right wrist (principal)
CPT/HCPCS: 36415; 85610

== ENCOUNTER 2025-03-11 12:17 | Day surgery (SDC) | payer MEDICARE, OTHER, SELFPAY ==
[2025-02-25 10:25] VITALS: BMI 24.4
[2025-03-11] MEDS: ACETAMINOPHEN 325 MG TABLET 975 MG PO (12:58)
[2025-03-11] MEDS: LACTATED RINGERS 1,000 ML 42 ML IV (12:58)
[2025-03-11 13:17] VITALS: BP 143/80; PULSE 60; RESP 16; TEMP 36.2; O2SAT 98
--- NOTE | 2025-03-11 13:56 | PM.PREOP ---
Pre-operative Note COVID-19 COVID-19 status: Not tested Interval Note History & Physical reviewed/Exam performed by Physician: Yes Changes to H&P: No
[2025-03-11] MEDS: LIDOCAINE 1% (PF) 5 ML INJ (15:12)
--- NOTE | 2025-03-11 15:13 | SUR.OPER ---
Supine on padded OR bed, head on pillow, left arm secured on padded arm board at <90 degrees abduction, right arm held on field on arm board, legs uncrossed, safety belt at thigh, tape over blanket over lower legs.
[2025-03-11 15:30] VITALS: BP 152/72; PULSE 62; RESP 16; TEMP 36.4; O2SAT 98
--- NOTE | 2025-03-11 15:35 | PM.OP.1 ---
Operative Date/Time/Diagnoses Date of procedure: 03/11/25 Time of procedure: 03:00 Pre-op diagnosis: right carpal tunnel syndrome Post-op diagnosis: same Procedure & Clinicians Procedure: Right open carpal tunnel release Same procedure(s) as scheduled: Yes Surgeon: Zaira Griffin Assisted?: No Anesthesia Type: MAC +/- (local - 10 cc of 1% lidocaine and 0.5% Marcaine) Operative Notes Findings: see below Closure Type: primary Specimen(s): none sent Applied: none Estimated Blood Loss (mL): 2 Blood products transfused: none Tourniquet time (min): 14 Procedure in detail: Indication For Surgery: Patient presented with signs and symptoms of carpal tunnel syndrome.? Conservative treatment did not result in adequate symptom improvement. The risks, benefits, and alternatives were discussed. Risks include pain, bleeding, infection, damage to nearby structures, pillar pain, wound healing complications, thumb weakness, numbness, lack of symptom relief, need for further surgery, DVT, PE, stroke, and . Written consent was obtained. Operative Findings: Thickened transverse carpal ligament was released.? No carpal tunnel masses. Procedure in Detail: The patient was met in the pre-operative hold area. Consent was verified and operative extremity was signed. The patient then met with anesthesia and was brought back to the operating room. The patient was placed supine on the operating table. Anesthetic was administered. The extremity was then prepped and draped in the usual sterile fashion. A timeout was performed per protocol. All were in agreement local anesthesia was injected? and we proceeded. A 3cm longitudinal incision was made in line with the ulnar border of the ring finger starting at Vega's Cardinal line distally. This was just radial to the hook of the hamate. Sharp dissection was brought down through the palmar fascia. Retractors were placed. The transverse carpal ligament was identified and a knife was used to incise it longitudinally until fat was seen distally in the palm. Tenotomy scissors were then used to create a pocket just superficial to the transverse carpal ligament and a freer was placed. The scissors were then placed deep to the ligament to bluntly separate the contents of the canal from ligament. I then pointed the tips of the scissors ulnarly and completed the release 2 cm into the antebrachial fascia. A freer elevator was used to confirm complete release both proximally and distally. The wound was then irrigated copiously and closed with 4-0 nylon in a horizontal mattress configuration. A sterile bulky dressing was applied. Complications: none Post-operative Condition: stable Disposition: PACU
[2025-03-11 15:40] VITALS: BP 144/70; PULSE 64; RESP 14; O2SAT 98
== END 2025-03-11 16:05 | disposition home or self-care (01) ==
PROVIDERS: Family Provider Family Medicine; PCP Family Medicine; Referring Provider Orthopaedic Surgery; Visit Provider Orthopaedic Surgery
PROC: (CPT 64721; principal; 2025-03-11 14:15)
DX: G56.01 Carpal tunnel syndrome, right upper limb (principal); Z87.891 Personal history of nicotine dependence
CPT/HCPCS: 64721; J0689; J2704; J3010; J7120

== ENCOUNTER → 2025-03-31 09:43 | Outpatient (CLI) | payer MEDICARE, OTHER, SELFPAY ==
[2025-03-31 10:59] LABS: Blood Urea Nitrogen 27 mg/dL (9-20); Calcium 9.0 mg/dL (8.4-10.2); Carbon Dioxide 25 mmol/L (22-32); Chloride 107 mmol/L (98-107); Estimated Glomerular Filt Rate > 60 mL/min (>60); Glucose 95 mg/dL (70-99); Magnesium 2.0 mg/dL (1.6-2.3); Sodium 140 mmol/L (137-145)
[2025-03-31 11:00] LABS: HEMOLYSIS 185 (0-50); Potassium 6.1 mmol/L (3.4-5.1)
== END ==
PROVIDERS: PCP Family Medicine; Referring Provider Nurse Practitioner; Visit Provider Nurse Practitioner
DX: I25.5 Ischemic cardiomyopathy (principal); I47.29 Other ventricular tachycardia
CPT/HCPCS: 36415; 80048; 83735

== ENCOUNTER → 2025-04-01 07:43 | Outpatient (ROUT) | payer MEDICARE, OTHER, SELFPAY ==
[2025-04-01 08:06] LABS: HEMOLYSIS 34 (0-50); Potassium 4.9 mmol/L (3.4-5.1)
== END ==
PROVIDERS: PCP Family Medicine; Visit Provider Family Medicine
DX: E87.5 Hyperkalemia (principal)
CPT/HCPCS: 84132